=== PATIENT | female | born 1970 | race Caucasian/White ===

== ENCOUNTER 2016-04-01 19:24 | Inpatient (IN) ==
[2016-04-01] MEDS ORDERED: Ondansetron 4 MG/2 ML VIAL IVP ONE (19:45)
[2016-04-01] MEDS ORDERED: 0.9 % Sodium Chloride 1,000 ML IVC ONE ×3 (19:45→22:57)
[2016-04-01 19:54] LABS: Bilirubin,Urine Small (Negative); Blood,Urine Negative (Negative); Clarity,Urine Clear (Clear); Color,Urine Yellow (Yellow); Glucose,Urine (UA) >=1000 mg/dL (Normal); Ketones,Urine 80 mg/dL (Negative); Leukocyte Esterase,Urine Small (Negative); Nitrite,Urine Negative (Negative); PH,Urine 5.5 pH Units (5.0-8.0); Protein,Urine Negative (Neg-Trace); Specific Gravity,Urine 1.025 (1.010-1.025); Urobilinogen,Urine Normal (Normal)
[2016-04-01 19:56] LABS: Bacteria,Urine None Seen per hpf (None-Few); Hyaline Casts,Urine None Seen per lpf (None-Few); RBC,Urine 0-3 per hpf (0-3); Squamous Epithelial Cell,Urine Many per lpf (None-Few); WBC,Urine 30-50 per hpf (0-3)
[2016-04-01 20:13] LABS: Basophils # 0.1 K/mcL (0.0-0.2); Basophils % 0.8 %; Eosinophils % 0.2 %; Hematocrit 41.2 % (35.3-44.9); Hemoglobin 14.7 g/dL (11.5-15.4); Immature Granulocytes % 1.9 % (0-4); Lymphocytes # 2.5 K/mcL (0.6-4.6); Lymphocytes % 16.3 %; Mean Corpuscular HGB Conc 35.7 g/dL (31.6-35.5); Mean Corpuscular Hemoglobin 29.6 pg (28.0-33.3); Mean Corpuscular Volume 83.1 fL (83.0-100.0); Mean Platelet Volume 9.5 fL (9.4-12.4); Monocytes # 0.7 K/mcL (0.0-1.3); Monocytes % 4.6 %; Neutrophils # 11.6 K/mcL (1.6-8.9); Platelet Count 417 K/mcL (140-400); Red Blood Count 4.96 M/mcL (3.82-4.97); Red Cell Distribution Width 11.5 % (11.5-14.5); Segmented Neutrophils % 76.2 %
[2016-04-01 20:27] LABS: Albumin 3.4 g/dL (3.5-5.0); Albumin/Globulin Ratio 0.7 (1.1-2.2); Bilirubin,Total 0.5 mg/dL (0.2-1.2); Calcium 11.8 mg/dL (8.6-10.8); Potassium 4.6 mEq/L (3.5-4.5); Total Protein 8.4 g/dL (6.0-8.3)
[2016-04-01] MEDS ORDERED: *HR* Dextrose 50 % in Water (Syg) 50 ML SYRINGE IVP PRN (21:10)
[2016-04-01] MEDS ORDERED: Insulin Human Regular 10 UNIT in 0.9 % Sodium Chloride 10 ML IV ONE ×2 (21:11→22:15)
[2016-04-01] MEDS ORDERED: Insulin Human Regular 100 UNIT in 0.9 % Sodium Chloride 100 ML IVC SCH (21:15)
[2016-04-01] MEDS ORDERED: Ketorolac 15 MG/ML VIAL IVP ONE (23:43)
--- NOTE | 2016-04-01 23:49 | Emergency Department Note ---
Disposition Clinical Impression: DKA (diabetic ketoacidoses) Qualifiers: Diabetes mellitus type: type 2 Diabetes mellitus complication detail: without coma Qualified Code(s): E13.10 - Other specified diabetes mellitus with ketoacidosis without coma UTI (urinary tract infection) Qualifiers: Urinary tract infection type: acute cystitis Hematuria presence: without hematuria Qualified Code(s): N30.00 - Acute cystitis without hematuria Disposition: Admitted As Inpatient Condition: Good Time of Disposition: 22:56 General Adult HPI - General Chief complaint: ED Nausea/Vomiting/Diarrhea Stated complaint: "horrible sick for last 3 days" Source: patient Mode of arrival: ambulatory Limitations: no limitations Nursing Notes Reviewed: Yes Vital Signs Reviewed: Yes - History of Present Illness HPI Narrative: 46-year-old female presents with concerns of abdominal pain, nausea, vomiting, and weakness. Patient states that she stopped taking her insulin 4 days ago due to an upset stomach. Patient states that since that time she has become progressively more symptomatic. Patient denies being in DKA in the past. She states that she takes both metformin and injected insulin. Patient has not checked her glucose within the past 5 days but states her normal glucose is in the low 300 range. Pain Scale: 0 - Related Data Home Medications Medication Instructions Recorded Confirmed Insulin ASPART [Novolog] 10/06/15 Insulin DETEMIR [Levemir] 0 unit 10/06/15 Metformin 10/06/15 Metformin HCl [Metformin HCl ER] 500 mg PO 10/06/15 Repaglinide [Prandin] 10/06/15 Previous Rx's Medication Instructions Recorded Naproxen [Naprosyn] 500 mg PO BID 5 Days 11/13/15 Allergies Allergy/AdvReac Type Severity Reaction Status Date / Time Hydromorphone [From Dilaudid] AdvReac See Unverified 04/01/16 23:22 Comments Penicillins [PCN] AdvReac See Unverified 04/01/16 23:22 Comments sulfamethoxazole AdvReac See Unverified 04/01/16 23:22 [From Bactrim] Comments trimethoprim [From Bactrim] AdvReac See Unverified 04/01/16 23:22 Comments bee stings Allergy Swelling Uncoded 04/01/16 23:22 of Lip/Tongue/Throat All systems ED: reviewed and negative except as stated. Constitutional: Reports: weakness. Denies: fever, chills Cardiovascular: Denies: chest pain, palpitations, dyspnea on exertion, orthopnea , syncope, paroxysmal nocturnal dyspnea Respiratory: Denies: cough, dyspnea, wheezes, hemoptysis, sputum production Gastrointestinal: Reports: abdominal pain, nausea, vomiting. Denies: diarrhea, constipation, hematemesis, melena Genitourinary: Denies: urgency, dysuria Musculoskeletal: Denies: back pain, neck pain Integumentary: Denies: rash Neurological: Denies: headache Past Medical History - Past Medical History Attestation: Yes The following information was validated with the patient. Source: patient Medical history: Reports: diabetes, other Psychiatric history: Reports: no psych history RESOURCE SPECIALIST history: Reports: no RESOURCE SPECIALIST history - Social History Smoking Status: Never smoker Smokeless Tobacco Status: No Alcohol use: Reports: none Drug use: Reports: none Physical Exam General: Alert and in no acute distress Skin: Warm, dry, intact Head: Normocephalic and atraumatic Neck: Supple, trachea midline and no tenderness Cardiovascular: Tachycardia, no murmur, normal perfusion Respiratory: CTAB, no wheezing, cough, or respiratory distress Musculoskeletal: Normal strength, no tenderness, swelling or deformity GI: Soft, generalized tenderness without evidence of rigidity, guarding, or rebound. nondistended. Bowel sounds present Neuro: A&O to person, place, time and situation. No focal deficits noted on exam Psychiatric: cooperative and appropriate mood and affect. - General Limitations: no limitations General appearance: alert Course Vital Signs Temperature 97.3 F L 04/01/16 19:28 Pulse Rate 112 04/01/16 19:28 Respiratory Rate 20 04/01/16 19:28 Blood Pressure 101/70 04/01/16 19:28 O2 Sat by Pulse Oximetry 99 04/01/16 19:28 Temperature 98.3 F 04/02/16 03:26 Pulse Rate 92 04/02/16 07:00 Respiratory Rate 12 04/02/16 07:00 Blood Pressure 129/79 04/02/16 07:00 O2 Sat by Pulse Oximetry 99 04/02/16 07:00 Oxygen Delivery Oxygen Delivery Room Air Medical Decision Making - MDM Narrative Medical decision making narrative: Patient started on insulin with IV bolus and then IV drip in the emergency department. Patient was given multiple boluses of IV fluids in the emergency department for treatment of DKA. Patient comfortable with plan for admission to the hospital for continuation of care. Patient was given ceftriaxone emergency department for treatment of urinary tract infection. Patient states that she is taking Keflex and ceftriaxone in the past without difficulty. - Medical Records Medical records reviewed: Yes I reviewed the patient's medical records. - Lab Data Lab results reviewed: Yes I reviewed the patient's lab results. Result diagrams: 04/02/16 02:57 04/02/16 02:57 Lab Results 04/01/16 04/01/16 04/01/16 Range/Units 19:45 19:48 20:00 WBC 15.3 H (4.3-11.1) K/mcL RBC 4.96 (3.82-4.97) M/mcL Hgb 14.7 (11.5-15.4) g/dL Hct 41.2 (35.3-44.9) % MCV 83.1 (83.0-100.0) fL MCH 29.6 (28.0-33.3) pg MCHC 35.7 H (31.6-35.5) g/dL RDW 11.5 (11.5-14.5) % Plt Count 417 H (140-400) K/mcL MPV 9.5 (9.4-12.4) fL Immature Gran % 1.9 (0-4) % Seg Neutrophils % 76.2 % Lymphocytes % 16.3 % Monocytes % 4.6 % Eosinophils % 0.2 % Basophils % 0.8 % Neutrophils # 11.6 H (1.6-8.9) K/mcL Lymphocytes # 2.5 (0.6-4.6) K/mcL Monocytes # 0.7 (0.0-1.3) K/mcL Eosinophils # 0.0 (0.0-0.6) K/mcL Basophils # 0.1 (0.0-0.2) K/mcL Sodium (136-145) mEq/L Potassium (3.5-4.5) mEq/L Chloride (98-109) mEq/L Carbon Dioxide (19-29) mEq/L BUN (7-20) mg/dL Creatinine (0.57-1.11) mg/dL Est GFR ( Amer) (> 60) Est GFR (Non-Af Amer) (> 60) BUN/Creatinine Ratio (6-26) Glucose (70-99) mg/dL POC Glucose (58-89) Calculated Osmolality (280-300) Calcium (8.6-10.8) mg/dL Total Bilirubin (0.2-1.2) mg/dL AST (5-34) Units/L ALT (0-55) Units/L Alkaline Phosphatase (38-126) Units/L Serum Total Protein (6.0-8.3) g/dL Albumin (3.5-5.0) g/dL Globulin (2.4-3.5) g/dL Albumin/Globulin Ratio (1.1-2.2) Lipase (8-78) Units/L Urine Color Yellow (Yellow) Urine Clarity Clear (Clear) Urine pH 5.5 (5.0-8.0) pH Units Ur Specific [place] 1.025 (1.010-1.025) Urine Protein Negative (Neg-Trace) mg/dL Urine Glucose (UA) >=1000 H (Normal) mg/dL Urine Ketones 80 H (Negative) mg/dL Urine Blood Negative (Negative) Urine Nitrite Negative (Negative) Urine Bilirubin Small H (Negative) Urine Urobilinogen Normal (Normal) mg/dL Ur Leukocyte Esterase Small H (Negative) Urine Microscopic RBC 0-3 (0-3) per hpf Urine Microscopic WBC 30-50 H (0-3) per hpf Ur Squamous Epith Cells Many H (None-Few) per lpf Urine Bacteria None Seen (None-Few) per hpf Hyaline Casts None Seen (None-Few) per lpf Urine Yeast Test Not Performed Ur Culture Indicated? YES A (NO) Urine Test Negative (Negative) 04/01/16 04/01/16 04/01/16 Range/Units 20:00 21:29 22:48 WBC (4.3-11.1) K/mcL RBC (3.82-4.97) M/mcL Hgb (11.5-15.4) g/dL Hct (35.3-44.9) % MCV (83.0-100.0) fL MCH (28.0-33.3) pg MCHC (31.6-35.5) g/dL RDW (11.5-14.5) % Plt Count (140-400) K/mcL MPV (9.4-12.4) fL Immature Gran % (0-4) % Seg Neutrophils % % Lymphocytes % % Monocytes % % Eosinophils % % Basophils % % Neutrophils # (1.6-8.9) K/mcL Lymphocytes # (0.6-4.6) K/mcL Monocytes # (0.0-1.3) K/mcL Eosinophils # (0.0-0.6) K/mcL Basophils # (0.0-0.2) K/mcL Sodium 133 L (136-145) mEq/L Potassium 4.6 H (3.5-4.5) mEq/L Chloride 88 L (98-109) mEq/L Carbon Dioxide 14 L (19-29) mEq/L BUN 27 H (7-20) mg/dL Creatinine 1.66 H (0.57-1.11) mg/dL Est GFR ( Amer) 40 L (> 60) Est GFR (Non-Af Amer) 33 L (> 60) BUN/Creatinine Ratio 16 (6-26) Glucose 622 H* (70-99) mg/dL POC Glucose 485 H* 466 H* (58-89) Calculated Osmolality 310 H (280-300) Calcium 11.8 H (8.6-10.8) mg/dL Total Bilirubin 0.5 (0.2-1.2) mg/dL AST 10 (5-34) Units/L ALT 12 (0-55) Units/L Alkaline Phosphatase 140 H (38-126) Units/L Serum Total Protein 8.4 H (6.0-8.3) g/dL Albumin 3.4 L (3.5-5.0) g/dL Globulin 5.0 H (2.4-3.5) g/dL Albumin/Globulin Ratio 0.7 L (1.1-2.2) Lipase 27 (8-78) Units/L Urine Color (Yellow) Urine Clarity (Clear) Urine pH (5.0-8.0) pH Units Ur Specific [place] (1.010-1.025) Urine Protein (Neg-Trace) mg/dL Urine Glucose (UA) (Normal) mg/dL Urine Ketones (Negative) mg/dL Urine Blood (Negative) Urine Nitrite (Negative) Urine Bilirubin (Negative) Urine Urobilinogen (Normal) mg/dL Ur Leukocyte Esterase (Negative) Urine Microscopic RBC (0-3) per hpf Urine Microscopic WBC (0-3) per hpf Ur Squamous Epith Cells (None-Few) per lpf Urine Bacteria (None-Few) per hpf Hyaline Casts (None-Few) per lpf Urine Yeast Ur Culture Indicated? (NO) Urine Test (Negative) 04/01/16 Range/Units 22:52 WBC (4.3-11.1) K/mcL RBC (3.82-4.97) M/mcL Hgb (11.5-15.4) g/dL Hct (35.3-44.9) % MCV (83.0-100.0) fL MCH (28.0-33.3) pg MCHC (31.6-35.5) g/dL RDW (11.5-14.5) % Plt Count (140-400) K/mcL MPV (9.4-12.4) fL Immature Gran % (0-4) % Seg Neutrophils % % Lymphocytes % % Monocytes % % Eosinophils % % Basophils % % Neutrophils # (1.6-8.9) K/mcL Lymphocytes # (0.6-4.6) K/mcL Monocytes # (0.0-1.3) K/mcL Eosinophils # (0.0-0.6) K/mcL Basophils # (0.0-0.2) K/mcL Sodium (136-145) mEq/L Potassium (3.5-4.5) mEq/L Chloride (98-109) mEq/L Carbon Dioxide (19-29) mEq/L BUN (7-20) mg/dL Creatinine (0.57-1.11) mg/dL Est GFR ( Amer) (> 60) Est GFR (Non-Af Amer) (> 60) BUN/Creatinine Ratio (6-26) Glucose (70-99) mg/dL POC Glucose 466 H* (58-89) Calculated Osmolality (280-300) Calcium (8.6-10.8) mg/dL Total Bilirubin (0.2-1.2) mg/dL AST (5-34) Units/L ALT (0-55) Units/L Alkaline Phosphatase (38-126) Units/L Serum Total Protein (6.0-8.3) g/dL Albumin (3.5-5.0) g/dL Globulin (2.4-3.5) g/dL Albumin/Globulin Ratio (1.1-2.2) Lipase (8-78) Units/L Urine Color (Yellow) Urine Clarity (Clear) Urine pH (5.0-8.0) pH Units Ur Specific [place] (1.010-1.025) Urine Protein (Neg-Trace) mg/dL Urine Glucose (UA) (Normal) mg/dL Urine Ketones (Negative) mg/dL Urine Blood (Negative) Urine Nitrite (Negative) Urine Bilirubin (Negative) Urine Urobilinogen (Normal) mg/dL Ur Leukocyte Esterase (Negative) Urine Microscopic RBC (0-3) per hpf Urine Microscopic WBC (0-3) per hpf Ur Squamous Epith Cells (None-Few) per lpf Urine Bacteria (None-Few) per hpf Hyaline Casts (None-Few) per lpf Urine Yeast Ur Culture Indicated? (NO) Urine Test (Negative) - Radiology Data Radiology results reviewed: Yes I reviewed the patient's radiology results. - EKG Data EKG #1 EKG attestation: Yes I reviewed and interpreted this EKG. EKG results narrative: ECG - interpreted by ED physician. Rate 104 sinus tachycardia, no STEMI
[2016-04-02] MEDS ORDERED: Naloxone 0.4 MG/ML INJ IVP PRN (00:41)
[2016-04-02] MEDS ORDERED: Insulin LISPRO 300 UNITS/3 ML VIAL SQ PRN (00:43)
[2016-04-02] MEDS ORDERED: D5% in 0.45% NACL w KCl 20 MEQ/1,000 ML MLS IVC PRN (00:43)
[2016-04-02] MEDS ORDERED: Insulin LISPRO 300 UNITS/3 ML VIAL SQ ONE (00:43)
[2016-04-02] MEDS ORDERED: D5% in 0.45% NACL 1,000 ML IVC PRN (00:43)
[2016-04-02] MEDS ORDERED: *HR* Dextrose 50 % in Water (Syg) 50 ML SYRINGE IVP PRN ×2 (00:43→14:15)
[2016-04-02] MEDS ORDERED: 0.9 % Sodium Chloride 1,000 ML IV SCH (00:45)
[2016-04-02] MEDS: Insulin Human Regular 100 UNIT in 0.9 % Sodium Chloride 100 ML IVC SCH ×2 (00:56→01:25)
--- NOTE | 2016-04-02 00:59 | Internal Med History&Physical ---
Date of Encounter: 04/02/16 Time of Encounter: 00:00 Assessment and Plan (1) DKA (diabetic ketoacidoses) Current visit: Yes Status: Acute -Likely secondary non compliance/viral gastroenteritis/UTI -Continue Insulin drip as per DKA protocol -IV fluids -continue to monitor fingerstick glucose as per DKA protocol -f/u repeat BMP -f/u HbA1C in am -patient demonstrates understanding of her disease and it's management and states this was the first time such an episode has occurred -Reports of loosing significant amount of weight once she was diagnosed with DM (used to weigh 220lbs) Critical Care time spent with the patient was 30minutes Qualifiers: Diabetes mellitus type: type 2 Diabetes mellitus complication detail: without coma Qualified Code(s): E13.10 - Other specified diabetes mellitus with ketoacidosis without coma (2) Diabetes mellitus type 2 in nonobese Current visit: Yes Status: Chronic -Will restart home insulin regimen once DKA resolves -f/u HbA1C -continue to monitor fingerstick and blood glucose -Diabetic education provided (3) Viral gastroenteritis Current visit: Yes Status: Acute -continue supportive care -IV fluids -Zofran PRN -Protonix 40mg IV (4) UTI (urinary tract infection) Current visit: Yes Status: Acute -Continue IV abx -follow up urine cultures Qualifiers: Urinary tract infection type: acute cystitis Hematuria presence: without hematuria Qualified Code(s): N30.00 - Acute cystitis without hematuria (5) Sinus tachycardia Current visit: Yes Status: Acute -Reports of chronic history of tachycardia -Will obtain 2D echo -Clinically asymptomatic at this time -Will continue to monitor (6) FITO (acute kidney injury) Current visit: Yes Status: Acute Continue IV fluids avoid nephrotoxic agents continue to monitor (7) DVT prophylaxis Current visit: Yes Status: Acute Heparin SQ Internal Medicine - H&P: HPI Chief complaint: nausea, vomiting Admitted From: Home Plans for Post Hospital Care: Home History of present illness: Ms. Rodriguez is a 46 year old female with PMH of DM-type 2 who presents to the ER for evaluation of nausea, vomiting x 4 days duration. Patient states about four days ago she started having epigastric discomfort which worsened to severe nausea and vomiting the following day. She states she has been barely able to keep anything down and has missed several insulin dosing at home due to severe weakness. She states she has had increased urinary frequency but that's common for her. She also reports of having fast heart rate at rest. Upon arrival to the ER, patient was noted to be severely hyperglycemic with an elevated anion gap consistent with DKA. She was started on IV fluids, Insulin drip and admitted to the ICU. At this time she is resting in bed, reports of complete resolution of her nausea and vomiting, but reports of epigastric burning. Reports of history of a "stomach ulcer" years ago for which she used to take sucrafate at one point, however apart from her insulin, she does not take any other medications. States she was recently started on Lisinopril by her PCP. She denies any headache, chest pain, sob, n/v, fever, or chills at this time. Past Med Surg Social Fam HX - Past Medical History Medical history: diabetes, other Psychiatric history: no psych history - Past Surgical History Surgical History: cholecystectomy - Social History Smoking Status: Never smoker Smokeless Tobacco Status: No Alcohol use: none Drug use: none Internal Medicine - H&P: Meds Insulin ASPART [Novolog] 10/06/15 [History] Insulin DETEMIR [Levemir] 0 unit 10/06/15 [History] Metformin 10/06/15 [History] Metformin HCl [Metformin HCl ER] 500 mg PO 10/06/15 [History] Repaglinide [Prandin] 10/06/15 [History] Naproxen [Naprosyn] 500 mg PO BID 5 Days 11/13/15 [Rx] Allergies Hydromorphone [From Dilaudid] Adverse Reaction (Unverified 04/01/16 23:22) See Comments Penicillins [PCN] Adverse Reaction (Unverified 04/01/16 23:22) See Comments sulfamethoxazole [From Bactrim] Adverse Reaction (Unverified 04/01/16 23:22) See Comments trimethoprim [From Bactrim] Adverse Reaction (Unverified 04/01/16 23:22) See Comments bee stings Allergy (Uncoded 04/01/16 23:22) Swelling of Lip/Tongue/Throat All Systems PM: A 10-system review of systems was performed and is negative for pertinent findings except as documented above in the HPI. - Constitutional Constitutional: as per HPI - Constitutional Vitals: Temp Pulse Resp BP Pulse Ox 0 F L 107 16 137/87 100 04/02/16 00:07 04/01/16 22:50 04/02/16 00:07 04/02/16 00:07 04/01/16 22:50 General appearance: Present: cooperative, A&O X 3, pleasant, no acute distress, answers questions appropriately - Head Head exam: Present: atraumatic, normocephalic - Eye Eye exam: Present: PERRL, conjuntiva pink, sclera anicteric - Respiratory Respiratory exam: Present: CTAB. Absent: accessory muscle use, rales, rhonchi, wheezes - Cardiovascular Cardiovascular exam: Present: +S1, +S2, tachycardia. Absent: diastolic murmur, gallop, rubs, systolic murmur - GI/Abdominal GI/Abdominal exam: Present: normal bowel sounds, soft, no peritoneal signs. Absent: distended, rebound, tenderness - Extremities Exam Extremities exam: Present: warm, radial pulses palpable and symetrical. Absent : calf tenderness, cyanotic, pedal edema - Neurological Exam Neurological exam: Present: alert, oriented X3, no focal deficits - Psychiatric Psychiatric exam: Present: normal affect, normal mood Internal Med - H&P Results - Labs CBC & Chem 7: 04/01/16 20:00 04/01/16 20:00
[2016-04-02 01:08] LABS: Calcium 9.7 mg/dL (8.6-10.8); Potassium 3.8 mEq/L (3.5-4.5)
[2016-04-02] MEDS: Pantoprazole 40 MG VIAL IVP SCH ×2 (01:24→07:23)
[2016-04-02] MEDS: 0.45 % Sodium Chloride w/KCl 20 MEQ/1,000 ML MLS IVC SCH ×9 (01:26→13:03)
[2016-04-02 03:23] LABS: Basophils # 0.1 K/mcL (0.0-0.2); Basophils % 0.5 %; Eosinophils % 0.1 %; Hematocrit 33.2 % (35.3-44.9); Immature Granulocytes % 1.3 % (0-4); Immature Platelets 2.2 % (1.1-6.1); Lymphocytes # 3.2 K/mcL (0.6-4.6); Mean Corpuscular HGB Conc 35.5 g/dL (31.6-35.5); Mean Corpuscular Hemoglobin 29.4 pg (28.0-33.3); Mean Corpuscular Volume 82.8 fL (83.0-100.0); Mean Platelet Volume 9.4 fL (9.4-12.4); Monocytes # 1.1 K/mcL (0.0-1.3); Monocytes % 6.6 %; Neutrophils # 11.5 K/mcL (1.6-8.9); Platelet Count 375 K/mcL (140-400); Red Blood Count 4.01 M/mcL (3.82-4.97); Red Cell Distribution Width 11.2 % (11.5-14.5); Segmented Neutrophils % 71.5 %
[2016-04-02 03:24] LABS: Hemoglobin 11.8 g/dL (11.5-15.4)
[2016-04-02 03:35] LABS: Estimated Average Glucose > 355 mg/dl; Hemoglobin A1C >= 14.1 %
[2016-04-02 03:39] LABS: BUN/Creatinine Ratio 23 (6-26); Blood Urea Nitrogen 23 mg/dL (7-20); Calcium 9.4 mg/dL (8.6-10.8); Carbon Dioxide 19 mEq/L (19-29); Chloride 104 mEq/L (98-109); Cholesterol 156 mg/dL (< 200); Glucose 222 mg/dL (70-99); HDL Cholesterol 39 mg/dL (40-59); LDL Cholesterol,Calculated 100 mg/dL (0-99); Magnesium 1.4 mg/dL (1.6-2.6); Osmolality,Calculated 293 (280-300); Phosphorous 2.2 mg/dL (2.3-4.7); Potassium 4.3 mEq/L (3.5-4.5); Sodium 136 mEq/L (136-145); Triglycerides 86 mg/dL (< 150); eGFR For African Americans > 60 (> 60); eGFR For Non-African Americans 59 (> 60)
[2016-04-02] MEDS ORDERED: Magnesium Sulfate 2 GM in D5% in Water 100 ML IVPB ONE (05:28)
[2016-04-02] MEDS: *HR* Heparin 5,000 UNIT/ML VIAL SQ SCH ×3 (07:23→23:23)
[2016-04-02] MEDS ORDERED: D5% in 0.45% NACL w KCl 20 MEQ/1,000 ML MLS IVC SCH (09:30)
[2016-04-02 10:02] LABS: Alanine Aminotransferase 10 Units/L (0-55); Albumin/Globulin Ratio 0.7 (1.1-2.2); Alkaline Phosphatase 96 Units/L (38-126); Aspartate Amino Transferase 17 Units/L (5-34); BUN/Creatinine Ratio 22 (6-26); Bilirubin,Total 0.3 mg/dL (0.2-1.2); Blood Urea Nitrogen 19 mg/dL (7-20); Calcium 9.7 mg/dL (8.6-10.8); Carbon Dioxide 17 mEq/L (19-29); Chloride 108 mEq/L (98-109); Globulin 3.9 g/dL (2.4-3.5); Glucose 59 mg/dL (70-99); Osmolality,Calculated 280 (280-300); Sodium 135 mEq/L (136-145); eGFR For African Americans > 60 (> 60); eGFR For Non-African Americans > 60 (> 60)
[2016-04-02 10:04] LABS: Albumin 2.6 g/dL (3.5-5.0); Potassium 4.7 mEq/L (3.5-4.5); Total Protein 6.5 g/dL (6.0-8.3)
[2016-04-02] MEDS: Ondansetron 4 MG/2 ML VIAL IVP PRN ×2 (13:05→19:48)
--- NOTE | 2016-04-02 13:24 | Electrocardiograph Report ---
[facility] Test Date: 2016-04-01 Pat Name: Shruthi Rodriguez Department: 102 Room: [facility] Gender: F Special Education Professional: Alexey : 1970 Requested By: Sindy Wang Order Number: [id number] Reading MD: Radha Danielle Measurements Intervals [place] Rate: 104 P: 75 PA: 118 QRS: 61 QRSD: 98 T: 54 QT: 325 QTc: 385 Interpretive Statements SINUS TACHYCARDIA WITH SHORT PA INTERVAL NONSPECIFIC T-WAVE ABNORMALITY ABNORMAL RHYTHM ECG Electronically Signed On 04-02-16 13:23:40 EST by Radha Danielle
[2016-04-02 13:34] LABS: BUN/Creatinine Ratio 20 (6-26); Blood Urea Nitrogen 16 mg/dL (7-20); Calcium 9.4 mg/dL (8.6-10.8); Carbon Dioxide 14 mEq/L (19-29); Chloride 107 mEq/L (98-109); Glucose 189 mg/dL (70-99); Osmolality,Calculated 282 (280-300); Sodium 133 mEq/L (136-145); eGFR For African Americans > 60 (> 60); eGFR For Non-African Americans > 60 (> 60)
[2016-04-02] MEDS ORDERED: D5% in Water 1,000 ML IV PRN (14:15)
[2016-04-02] MEDS ORDERED: Dextrose Gel 15 GM PO PRN ×2 (14:15)
[2016-04-02] MEDS ORDERED: Insulin DETEMIR 100 UNIT/ML X5UNITS SQ ONE (14:21)
--- NOTE | 2016-04-02 14:43 | ECHO - Doppler Report ---
Echocardiogram Name: Shruthi Rodriguez Date of Study: 04/02/2016 Date: 1970 Ht: 62.0 in Medical Record#: [id number] Age: 46 Wt: 118.0 lb Gender: Female BSA: 1.53 Order #: [id number] Location: [facility] Room #: IC5 Reading Physician: Fina Padron DO Flight Paramedic: Елена Bach Ordering Physician: Jorgito Humphrey MD Primary Physician: Adelina Melendez CNP Indications: r/o wall motion abnormalities Impressions: LVEF 60-65%. Normal LV wall motion. Normal left ventricular size and systolic function. There is evidence of moderate diastolic dysfunction of the left ventricle. Normal right ventricular size and function. Mild tricuspid regurgitation. No pulmonary hypertension. Trivial pericardial effusion. No tamponade. Left Ventricular Wall Motion: Rest Echo Findings All wall segments showed normal motion. Findings: Study Quality * Technically adequate exam. ECG Findings * Normal sinus rhythm. Left Ventricle * LVEF 60-65%. * Normal LV chamber size, wall thickness and function. * Moderate left ventricular diastolic dysfunction. Left Atrium * Normal left atrial size. Mitral Valve * Normal mitral valve structure. * No mitral stenosis. * No mitral regurgitation. Aortic Valve * No aortic regurgitation. * Aortic valve not well visualized. * No aortic stenosis. Tricuspid Valve * Normal tricuspid valve structure. * Estimated RA pressure is 3 mmHg. * Estimated RVSP is 30 mmHg. * No pulmonary hypertension. * Mild tricuspid regurgitation. Pulmonic Valve * Pulmonic valve is not well visualized. * No pulmonic stenosis. * No pulmonic regurgitation. Pulmonary Artery * Pulmonary artery not well visualized. Right Ventricle * Normal right ventricular structure and function. * Prominent moderator band. Right Atrium * Normal right atrial size. Interatrial Septum * Interatrial septum not well evaluated. IVC * Normal IVC dimensions and inspiratory collapse. Aorta * Normally sized aortic root. Pericardium * There is a trivial pericardial effusion present. History Hypercholesteremia Family History of CAD Measurements: BP: 133/ 74 2D Normal Values IVSd: 1.00 cm 0.6 - 1.0 cm LVIDd: 4.00 cm 3.7 - 5.6 cm LVPWd: 1.00 cm 0.6 - 1.1 cm LVIDs: 2.80 cm 1.5 - 3.6 cm LA: 3.60 cm 2.0 - 4.0cm %FS: 30.00 cm >25 % LA volume: 37 Mitral Valve Peak E:.81 m/sec Peak A:.66 m/sec E/A Ratio:1.2 Peak E' Lat Herson:10.4 cm/s Peak E' Med Herson:5.85 cm/s E/E' Lat Ratio:7.8 E/E' Med Ratio:13.8 Tricuspid Valve TV Regurg Peak Grad: 27.00mmHg Updated by Fina Padron on 04/02/2016 2:34:45 PM electronically signed on 04/02/2016 2:37:25 PM with status of Final Wall Motion Kang: 1=Normal, 2=Hypokinesis, 3=Akinesis, 4=Dyskinesis, 5=Aneurysmal, 6=Hyperkinetic, X=Not Visualized (Blank)=Missing
[2016-04-02] MEDS: Insulin LISPRO 300 UNITS/3 ML VIAL SQ SCH (16:15)
[2016-04-02] MEDS ORDERED: Insulin DETEMIR 100 UNIT/ML X5UNITS SQ SCH (21:00)
[2016-04-02] MEDS ORDERED: Insulin LISPRO 300 UNITS/3 ML VIAL SQ SCH (21:00)
--- NOTE | 2016-04-02 21:40 | Internal Med Progress Note ---
Date of Encounter: 04/02/16 Time of Encounter: 09:00 - Assessment and plan (1) DKA (diabetic ketoacidoses) Current Visit: Yes Status: Acute Assessment and plan: Pt is treated per DKA protocol. Continue IV insulin - transition to subcutaneous insulin, when the anion gap closes Qualifiers: Diabetes mellitus type: type 2 Diabetes mellitus complication detail: without coma Qualified Code(s): E13.10 - Other specified diabetes mellitus with ketoacidosis without coma (2) DVT prophylaxis Current Visit: Yes Status: Acute Assessment and plan: Continue heparin (3) UTI (urinary tract infection) Current Visit: Yes Status: Acute Assessment and plan: Suspected UTI. UA shows epithelial cells. Await cultures. Qualifiers: Urinary tract infection type: acute cystitis Hematuria presence: without hematuria Qualified Code(s): N30.00 - Acute cystitis without hematuria (4) Epigastric abdominal pain Current Visit: Yes Status: Acute Assessment and plan: Serum lipase is normal. Treat for peptic ulcer disease with PPI - Subjective Interval history: Pt seen and examined at the bedside. Pt reports feeling better. Reports some epigastric pain. No nausea or vomiting now - Constitutional Vitals: Temp Pulse Resp BP Pulse Ox 98.2 F 92 14 114/76 99 04/02/16 19:50 04/02/16 21:00 04/02/16 21:00 04/02/16 21:00 04/02/16 21:00 Exam: General: Not in acute distress at the time of my evaluation Lungs: Clear to auscultation Cardiac: Regular rate and rhythm. No significant murmurs Abdomen: mild Epigastric tenderness Neurological: Alert and oriented. No gross localizing deficits Psych: Not agrressive or agitated Extremities: no significant leg edema Skin: No generalized rash Internal Medicine: Result - Labs CBC & Chem 7: 04/02/16 02:57 04/02/16 13:04 Labs: Short CBC 04/02/16 Range/Units 02:57 WBC 16.1 H (4.3-11.1) K/mcL Hgb 11.8 D (11.5-15.4) g/dL Hct 33.2 L (35.3-44.9) % Plt Count 375 (140-400) K/mcL Neutrophils # 11.5 H (1.6-8.9) K/mcL BMP 04/02/16 04/02/1604/02/17 00:48 02:57 09:39 Sodium 136 136 135 L Potassium 3.8 4.3 4.7 H Chloride 102 104 108 Carbon Dioxide 18 L 19 17 L BUN 25 H 23 H 19 Creatinine 1.24 H 1.01 0.85 Glucose 319 H 222 H 59 L Calcium 9.7 D 9.4 9.7 04/02/16 13:04 Sodium 133 L Potassium 5.0 H Chloride 107 Carbon Dioxide 14 L BUN 16 Creatinine 0.80 Glucose 189 H Calcium 9.4 Liver Function 04/02/16 Range/Units 09:39 Total Bilirubin 0.3 (0.2-1.2) mg/dL AST 17 (5-34) Units/L ALT 10 (0-55) Units/L Alkaline Phosphatase 96 (38-126) Units/L Albumin 2.6 L D (3.5-5.0) g/dL Consult Discharge Plan - Plan Referrals: Adelina Melendez, [employer] [Primary Care Provider] -
[2016-04-02 22:14] LABS: BUN/Creatinine Ratio 14 (6-26); Blood Urea Nitrogen 11 mg/dL (7-20); Calcium 9.6 mg/dL (8.6-10.8); Carbon Dioxide 23 mEq/L (19-29); Chloride 103 mEq/L (98-109); Glucose 164 mg/dL (70-99); Osmolality,Calculated 277 (280-300); Phosphorous 1.6 mg/dL (2.3-4.7); Potassium 4.4 mEq/L (3.5-4.5); Sodium 132 mEq/L (136-145); eGFR For African Americans > 60 (> 60); eGFR For Non-African Americans > 60 (> 60)
[2016-04-02] MEDS ORDERED: SODIUM PHOSPHATE IVPB ONE (22:24)
[2016-04-02] MEDS ORDERED: WATER IVPB ONE (22:24)
[2016-04-02] MEDS ORDERED: D5 IVPB ONE (22:24)
[2016-04-03 03:07] LABS: Hematocrit 33.9 % (35.3-44.9); Hemoglobin 12.1 g/dL (11.5-15.4); Mean Corpuscular HGB Conc 35.7 g/dL (31.6-35.5); Mean Corpuscular Hemoglobin 29.9 pg (28.0-33.3); Mean Corpuscular Volume 83.7 fL (83.0-100.0); Mean Platelet Volume 9.1 fL (9.4-12.4); Platelet Count 327 K/mcL (140-400); Red Blood Count 4.05 M/mcL (3.82-4.97); Red Cell Distribution Width 11.5 % (11.5-14.5)
[2016-04-03] MEDS: Ondansetron 4 MG/2 ML VIAL IVP PRN (03:10)
[2016-04-03 03:23] LABS: BUN/Creatinine Ratio 14 (6-26); Blood Urea Nitrogen 9 mg/dL (7-20); Calcium 9.5 mg/dL (8.6-10.8); Carbon Dioxide 22 mEq/L (19-29); Chloride 107 mEq/L (98-109); Glucose 68 mg/dL (70-99); Magnesium 1.7 mg/dL (1.6-2.6); Osmolality,Calculated 279 (280-300); Potassium 3.8 mEq/L (3.5-4.5); Sodium 136 mEq/L (136-145); eGFR For African Americans > 60 (> 60); eGFR For Non-African Americans > 60 (> 60)
[2016-04-03 03:25] LABS: Phosphorous 2.8 mg/dL (2.3-4.7)
[2016-04-03] MEDS: Insulin LISPRO 300 UNITS/3 ML VIAL SQ SCH ×2 (08:29→12:26)
[2016-04-03] MEDS: *HR* Heparin 5,000 UNIT/ML VIAL SQ SCH (08:30)
[2016-04-03] MEDS: Pantoprazole 40 MG VIAL IVP SCH (08:30)
[2016-04-03] MEDS ORDERED: Magnesium Oxide 400 MG TABLET PO SCH (09:00)
--- NOTE | 2016-04-03 10:05 | Discharge Summary ---
Date of Encounter: 04/03/16 Time of Encounter: 09:58 - Discharge Diagnosis (1) DKA (diabetic ketoacidoses) Priority: Primary Status: Acute Qualifiers: Diabetes mellitus type: type 2 Diabetes mellitus complication detail: without coma Qualified Code(s): E13.10 - Other specified diabetes mellitus with ketoacidosis without coma (2) Epigastric abdominal pain Priority: Secondary Status: Acute Comments: Likely secondary to peptic ulcer disease. Recommended PPI and follow-up with lawn specialist for possible endoscopy (3) Diabetes mellitus type 2, uncontrolled Priority: Secondary Status: Acute Comments: Hemoglobin A1c is 14.1% Qualifiers: Diabetes mellitus complication status: with hyperglycemia Diabetes mellitus buttermaker insulin use: with buttermaker use Qualified Code(s): E11.65 - Type 2 diabetes mellitus with hyperglycemia; Z79.4 - bed bug exterminator (current) use of insulin (4) Hypophosphatemia Priority: Secondary Status: Resolved (5) Hypomagnesemia Priority: Secondary Status: Resolved - Discharge Medications Prescriptions: Pantoprazole Sodium 40 mg PO DAILY #30 tab Pantoprazole Sodium 40 mg PO DAILY #30 tab Sucralfate [Carafate] 1 gm PO QIDAC PRN #30 tablet PRN Reason: Dyspepsia Sucralfate [Carafate] 1 gm PO QIDAC PRN #30 tablet PRN Reason: Dyspepsia Home Medications: Metformin HCl [Metformin HCl ER] 1,000 mg PO BID 10/06/15 [History] Aspirin 81 mg PO DAILY 04/02/16 [History] Gabapentin [Neurontin] 100 mg PO TID PRN 04/02/16 [History] Lisinopril 2.5 mg PO DAILY 04/02/16 [History] Repaglinide [Prandin] 1 mg PO TIDAC 04/02/16 [History] Insulin ASPART [Novolog] 0 - 30 units SQ QIDAC #1 vial 04/03/16 [Rx] Insulin DETEMIR [Levemir] 24 unit SQ DAILY #1 vial 04/03/16 [Rx] Pantoprazole Sodium 40 mg PO DAILY #30 tab 04/03/16 [Rx] Pantoprazole Sodium 40 mg PO DAILY #30 tab 04/03/16 [Rx] Sucralfate [Carafate] 1 gm PO QIDAC PRN #30 tablet 04/03/16 [Rx] Sucralfate [Carafate] 1 gm PO QIDAC PRN #30 tablet 04/03/16 [Rx] Allergies/Adverse Reactions: Allergies Hydromorphone [From Dilaudid] Allergy (Severe, Verified 04/03/16 08:28) Palpitations pt states throws me into a fib rvr Penicillins [PCN] Adverse Reaction (Severe, Verified 04/03/16 08:28) Hives sulfamethoxazole [From Bactrim] Adverse Reaction (Severe, Verified 04/03/16 08: 28) Rash trimethoprim [From Bactrim] Adverse Reaction (Severe, Verified 04/03/16 08:28) Rash bee stings Allergy (Severe, Uncoded 04/03/16 08:28) Swelling of Lip/Tongue/Throat Procedures/tests Complete & Pending: Procedures Performed prior 72 hours Category Date Time Status ECG 12 lead ECG [ECG] Routine Y 04/01/16 12:20 Completed EV echocardiogram Routine Y 04/02/16 00:51 Completed Pending Tests Category Date Time Status Lactic Acid ([facility] Only) Stat Lab 04/02/16 00:47 Incomplete ITS Impressions Chest X-Ray 04/01/16 20:31 IMPRESSION: No evidence of pneumoperitoneum. Clear lungs. D/ / Jason Vitale MD / Jason Vitale MD Interpreting Provider: Jason Vitale MD Date of admission: 04/01/16 23:20 Primary care physician: Adelina Melendez CNP Discharging clinician: Sindy Wang Anticipated date of discharge: 04/03/16 - Patient Status Disposition: Home, Self-Care Condition: Good Overall status at discharge: patient is back to baseline - Discharge Instructions Instructions: Urinary Tract Infection in Women (DC), Diabetes Mellitus Type 2 in Adults (DC), Gastroenteritis (DC) Follow Up With: Adelina Melendez CNP [Primary Care Provider] - Taylor uHtson MD [Partnered Physician] - Forms: ED Satisfaction Letter Additional Instructions: Follow up with PCP in 7 days; Follow up with Gatroenterologist in 2-4 weeks - Diet and Activity Activity: increase activity as tolerated Diet: diabetic diet Interval History: 46 year old female with PMH of DM-type 2 presented to the ER with h/o of nausea , vomiting x 4 days duration. she has been barely able to keep anything down and has missed several insulin dosing at home due to severe weakness. She reported increased urinary frequency. In the ER, patient was noted to be severely hyperglycemic (serum glucose: 622) with an elevated anion gap (of 31), ketonuria consistent with DKA. She was started on IV fluids, Insulin drip and admitted to the ICU. Her acidosis and anion gap improved and was transitioned to subcutaneous insulin on 04/02/16. She tolerated the diet and her blood sugars were well controlled. On the background, patient has uncontrolled diabetes with hemoglobin A1c of 14.1%. She reported epigastric pain since the admission time. Lipase was normal. Pain was suspicious for acid peptic disease and was started on pantoprazole and sucralfate, significant symptom relief. She apparently had history of weight loss in the past (for 5 years ? intentional). She did not report any loss of appetite or recent weight loss. Have advised her to follow-up with lawn specialist for further workup and management. Her urinalysis was abnormal but urine cultures were negative. Hospital course: Ms. Rodriguez is a 46 year old female - Time Spent with Patient Total time spent providing and/or coordinating discharge services: - Constitutional Vitals: Temp Pulse Resp BP Pulse Ox 97.8 F 79 14 135/85 97 04/03/16 07:59 04/03/16 06:00 04/03/16 06:00 04/03/16 06:00 04/03/16 06:00 General appearance: Present: A&O X 3 Exam: General: Not in acute distress at the time of my evaluation Lungs: Clear to auscultation Cardiac: Regular rate and rhythm. No significant murmurs Abdomen: mild epigastric tenderness. Bowel sounds present Neurological: Alert and oriented. No gross localizing deficits Psych: Not aggressive or agitated Extremities: no significant leg edema Skin: No generalized rash
[2016-04-03 13:33] VITALS: BP 139/87
== END 2016-04-03 15:06 | disposition home or self-care (01) | DRG 638 ==
LOC: EMEROO 19:24 → ICNU 19:24 → OBSVTOIN 23:20 → ICNU 04-02 00:23
PROVIDERS: ADMIT Internal Medicine; ATTEND Internal Medicine

== ENCOUNTER 2018-08-30 13:49 | Observation (INO) ==
[2018-08-30] MEDS ORDERED: Ondansetron 4 MG/2 ML VIAL IVP ONE (14:10)
[2018-08-30] MEDS ORDERED: 0.9 % Sodium Chloride 1,000 ML IVC ONE ×2 (14:10→14:53)
--- NOTE | 2018-08-30 14:14 | Emergency Department Note ---
Disposition Clinical Impression: Hyperglycemia, Nausea vomiting and diarrhea Disposition: Admitted As Inpatient Condition: Undetermined Time of Disposition: 16:06 General Adult HPI - General Chief complaint: ED Nausea/Vomiting/Diarrhea Stated complaint: Vomiting,Diahrrea Time Seen by Provider: 08/30/18 14:00 Source: patient Mode of arrival: ambulatory Limitations: no limitations Nursing Notes Reviewed: Yes Vital Signs Reviewed: Yes - History of Present Illness HPI Narrative: 48-year-old female with history of diabetes on insulin, hypertension, hyperlipidemia, hypothyroidism arrives to the emergency department with complaint of nausea, vomiting, diarrhea, lower abdominal pain that has been intermittent in nature over the course the past 5 days. The patient call PCP but has not seen anyone for this. Her vomiting is nonbilious and nonbloody and SANE with her stool. The patient also states that she is starting to feel like she is going to DKA. Patient denies any other complaints at this time. Vital signs demonstrate no tachycardia or hypotension noted. Pain Scale: 0 - Related Data Home Medications Medication Instructions Recorded Confirmed Levothyroxine 05/24/18 Lovastatin 05/24/18 Lisinopril 5 mg PO DAILY 07/02/18 08/30/18 Insulin DETEMIR [Levemir] 40 unit SQ HS 08/30/18 08/30/18 Previous Rx's Medication Instructions Recorded Insulin ASPART [Novolog] 0 - 30 units SQ QIDAC #1 vial 04/03/16 Ondansetron ODT [Zofran ODT] 4 mg SL Q6HR PRN #15 tab.rapdis 08/31/18 Allergies Allergy/AdvReac Type Severity Reaction Status Date / Time hydromorphone [From Dilaudid] Allergy Severe Palpitation Verified 05/24/18 13:42 s meloxicam [From Mobic] Allergy Rash Verified 07/02/18 16:07 Penicillins [PCN] AdvReac Severe Hives Verified 05/24/18 13:42 sulfamethoxazole AdvReac Severe Rash Verified 05/24/18 13:42 [From Bactrim] trimethoprim [From Bactrim] AdvReac Severe Rash Verified 05/24/18 13:42 bee stings Allergy Severe Swelling Uncoded 05/24/18 13:42 of Lip/Tongue/Throat All systems ED: reviewed and negative except as stated. Constitutional: Reports: weakness. Denies: fever, chills ENT ED: Denies: dysphagia Cardiovascular: Denies: chest pain Respiratory: Denies: dyspnea Gastrointestinal: Reports: abdominal pain, nausea, vomiting, diarrhea. Denies: constipation, hematemesis, melena, hematochezia Genitourinary: Denies: urgency, dysuria Musculoskeletal: Denies: back pain Integumentary: Denies: rash Neurological: Denies: headache Past Medical History - Past Medical History Attestation: Yes The following information was validated with the patient. Source: patient, old records reviewed Medical history: Reports: diabetes, hyperlipidemia, hypertension, thyroid disease Surgical history: Reports: cholecystectomy Psychiatric history: Reports: no psych history FUEL CELL BUILDER history: Reports: no FUEL CELL BUILDER history - Social History Smoking Status: Never smoker Smokeless Tobacco Status: No Alcohol use: Reports: none Drug use: Reports: none Physical Exam - General Limitations: no limitations General appearance: alert, in no apparent distress - Head Head exam: atraumatic, normocephalic, normal inspection - Eye Eye exam: Present: normal appearance, PERRL, EOMI - ENT ENT exam: normal exam, normal oropharynx, mucous membranes moist - Neck Neck exam: Present: normal inspection, full ROM, trachea midline - Chest Chest inspection: Present: normal inspection, symmetric chest wall rise - Respiratory Respiratory exam: Present: normal lung sounds bilaterally - Cardiovascular Cardiovascular exam: Present: regular rate, normal rhythm, normal heart sounds - Abdominal Exam Abdominal exam: Present: soft, tenderness (Lower abd). Absent: distention, guarding, rebound, rigidity, Ocasio's sign, Rovsing's sign, tenderness at McBurney's Point - Extremities Exam Extremities exam: Present: normal inspection, full ROM, normal capillary refill. Absent: tenderness, pedal edema - Neurological Exam Neurological exam: Present: alert, oriented X3 - Skin Skin exam: Present: warm, dry, intact, normal color Course Vital Signs Temperature 97.9 F 08/30/18 13:53 Pulse Rate 87 08/30/18 13:53 Respiratory Rate 18 08/30/18 13:53 Blood Pressure 144/85 08/30/18 13:53 O2 Sat by Pulse Oximetry 100 08/30/18 13:53 Temperature 97.9 F 08/30/18 14:09 Pulse Rate 79 08/30/18 15:37 Respiratory Rate 18 08/30/18 15:37 Blood Pressure 172/85 08/30/18 15:37 O2 Sat by Pulse Oximetry 98 08/30/18 15:37 Oxygen Delivery Oxygen Delivery Room Air Medical Decision Making - MDM Narrative Medical decision making narrative: Patient's workup in the emergency department demonstrates findings consistent with hyperglycemia with concern for HHS. The patient also was found to have a thickened bladder wall. This may be related to use infection versus infection but the urine is not obviously infected on evaluation. Patient will be given Diflucan here in the ED. The patient was administered subcutaneous insulin and multiple liters of IV fluid as well as antiemetic. Patient states overall she is feeling much better. In addition I did order a C. difficile because the patient had been on recent antibiotics roughly 3 weeks ago. The patient will be admitted to the hospital at this time given the patient's symptoms. Patient made aware and agrees to plan. No further questions or concerns. Accepted by Dr. Khan. - Lab Data Lab results reviewed: Yes I reviewed the patient's lab results. Result diagrams: 08/31/18 08:51 08/31/18 08:51 Lab Results 08/30/18 08/30/18 08/30/18 Range/Units 14:17 14:17 14:17 WBC 9.8 (4.3-11.1) K/mcL RBC 3.80 L (3.82-4.97) M/mcL Hgb 11.6 (11.5-15.4) g/dL Hct 32.2 L (35.3-44.9) % MCV 84.7 (83.0-100.0) fL MCH 30.5 (28.0-33.3) pg MCHC 36.0 H (31.6-35.5) g/dL RDW 11.4 L (11.5-14.5) % Plt Count 280 (140-400) K/mcL MPV 10.6 (9.4-12.4) fL Immature Gran % 0.4 (0-4) % Seg Neutrophils % 65.9 % Lymphocytes % 26.0 % Monocytes % 5.8 % Eosinophils % 1.4 % Basophils % 0.5 % Neutrophils # 6.4 (1.6-8.9) K/mcL Lymphocytes # 2.6 (0.6-4.6) K/mcL Monocytes # 0.6 (0.0-1.3) K/mcL Eosinophils # 0.1 (0.0-0.6) K/mcL Basophils # 0.1 (0.0-0.2) K/mcL VBG pH (7.32-7.42) pH Units VBG pCO2 (41-51) mmHg VBG pO2 (25-50) mmHg VBG HCO3 (21-27) mEq/L Sodium 129 L (136-145) mEq/L Potassium 3.7 (3.5-5.1) mEq/L Chloride 90 L (98-107) mEq/L Carbon Dioxide 32 H (23-29) mEq/L BUN 19 (6-20) mg/dL Creatinine 0.79 (0.60-1.20) mg/dL Est GFR ( Amer) > 60 (> 60) Est GFR (Non-Af Amer) > 60 (> 60) BUN/Creatinine Ratio 24 (6-26) Glucose 514 H* (70-105) mg/dL Calculated Osmolality 293 (280-300) Lactic Acid (0.5-2.2) mmol/L Calcium 9.6 (8.6-10.3) mg/dL Total Bilirubin 0.3 (0.3-1.0) mg/dL Direct Bilirubin 0.1 (0.0-0.2) mg/dL Indirect Bilirubin 0.2 (0.0-1.2) mg/dL AST 16 (13-39) Units/L ALT 18 (7-52) Units/L Alkaline Phosphatase 130 H (34-104) Units/L Troponin I < 0.03 (< 0.04) ng/mL Serum Total Protein 6.0 L (6.4-8.9) g/dL Albumin 2.9 L (3.5-5.7) g/dL Globulin 3.1 (2.4-3.5) g/dL Albumin/Globulin Ratio 0.9 L (1.1-2.2) Lipase 15 (11-82) Units/L Beta-Hydroxybutyric Acd 0.17 (0.02-0.27) mmol/L Urine Color (Yellow) Urine Clarity (Clear) Urine pH (5.0-8.0) pH Units Ur Specific [place] (1.010-1.025) Urine Protein (Neg-Trace) mg/dL Urine Glucose (UA) (Normal) mg/dL Urine Ketones (Negative) mg/dL Urine Blood (Negative) Urine Nitrite (Negative) Urine Bilirubin (Negative) Urine Urobilinogen (Normal) mg/dL Ur Leukocyte Esterase (Negative) Urine Microscopic RBC (0-3) per hpf Urine Microscopic WBC (0-3) per hpf Ur Squamous Epith Cells (None-Few) per lpf Urine Bacteria (None-Few) per hpf Hyaline Casts (None-Few) per lpf Urine Yeast (None Seen) per hpf Ur Culture Indicated? (NO) Urine Test (Negative) 08/30/18 08/30/18 08/30/18 Range/Units 14:34 14:44 14:44 WBC (4.3-11.1) K/mcL RBC (3.82-4.97) M/mcL Hgb (11.5-15.4) g/dL Hct (35.3-44.9) % MCV (83.0-100.0) fL MCH (28.0-33.3) pg MCHC (31.6-35.5) g/dL RDW (11.5-14.5) % Plt Count (140-400) K/mcL MPV (9.4-12.4) fL Immature Gran % (0-4) % Seg Neutrophils % % Lymphocytes % % Monocytes % % Eosinophils % % Basophils % % Neutrophils # (1.6-8.9) K/mcL Lymphocytes # (0.6-4.6) K/mcL Monocytes # (0.0-1.3) K/mcL Eosinophils # (0.0-0.6) K/mcL Basophils # (0.0-0.2) K/mcL VBG pH (7.32-7.42) pH Units VBG pCO2 (41-51) mmHg VBG pO2 (25-50) mmHg VBG HCO3 (21-27) mEq/L Sodium (136-145) mEq/L Potassium (3.5-5.1) mEq/L Chloride (98-107) mEq/L Carbon Dioxide (23-29) mEq/L BUN (6-20) mg/dL Creatinine (0.60-1.20) mg/dL Est GFR ( Amer) (> 60) Est GFR (Non-Af Amer) (> 60) BUN/Creatinine Ratio (6-26) Glucose (70-105) mg/dL Calculated Osmolality (280-300) Lactic Acid 1.8 (0.5-2.2) mmol/L Calcium (8.6-10.3) mg/dL Total Bilirubin (0.3-1.0) mg/dL Direct Bilirubin (0.0-0.2) mg/dL Indirect Bilirubin (0.0-1.2) mg/dL AST (13-39) Units/L ALT (7-52) Units/L Alkaline Phosphatase (34-104) Units/L Troponin I (< 0.04) ng/mL Serum Total Protein (6.4-8.9) g/dL Albumin (3.5-5.7) g/dL Globulin (2.4-3.5) g/dL Albumin/Globulin Ratio (1.1-2.2) Lipase (11-82) Units/L Beta-Hydroxybutyric Acd (0.02-0.27) mmol/L Urine Color Yellow (Yellow) Urine Clarity Clear (Clear) Urine pH 6.0 (5.0-8.0) pH Units Ur Specific [place] > 1.030 H (1.010-1.025) Urine Protein >=300 H (Neg-Trace) mg/dL Urine Glucose (UA) >=1000 H (Normal) mg/dL Urine Ketones Negative (Negative) mg/dL Urine Blood Small H (Negative) Urine Nitrite Negative (Negative) Urine Bilirubin Negative (Negative) Urine Urobilinogen Normal (Normal) mg/dL Ur Leukocyte Esterase Negative (Negative) Urine Microscopic RBC 3-5 H (0-3) per hpf Urine Microscopic WBC 3-5 H (0-3) per hpf Ur Squamous Epith Cells Moderate H (None-Few) per lpf Urine Bacteria Many H (None-Few) per hpf Hyaline Casts None Seen (None-Few) per lpf Urine Yeast Many H (None Seen) per hpf Ur Culture Indicated? YES A (NO) Urine Test Negative (Negative) 08/30/18 Range/Units 15:08 WBC (4.3-11.1) K/mcL RBC (3.82-4.97) M/mcL Hgb (11.5-15.4) g/dL Hct (35.3-44.9) % MCV (83.0-100.0) fL MCH (28.0-33.3) pg MCHC (31.6-35.5) g/dL RDW (11.5-14.5) % Plt Count (140-400) K/mcL MPV (9.4-12.4) fL Immature Gran % (0-4) % Seg Neutrophils % % Lymphocytes % % Monocytes % % Eosinophils % % Basophils % % Neutrophils # (1.6-8.9) K/mcL Lymphocytes # (0.6-4.6) K/mcL Monocytes # (0.0-1.3) K/mcL Eosinophils # (0.0-0.6) K/mcL Basophils # (0.0-0.2) K/mcL VBG pH 7.45 H (7.32-7.42) pH Units VBG pCO2 40 L (41-51) mmHg VBG pO2 185 H (25-50) mmHg VBG HCO3 28 H (21-27) mEq/L Sodium (136-145) mEq/L Potassium (3.5-5.1) mEq/L Chloride (98-107) mEq/L Carbon Dioxide (23-29) mEq/L BUN (6-20) mg/dL Creatinine (0.60-1.20) mg/dL Est GFR ( Amer) (> 60) Est GFR (Non-Af Amer) (> 60) BUN/Creatinine Ratio (6-26) Glucose (70-105) mg/dL Calculated Osmolality (280-300) Lactic Acid (0.5-2.2) mmol/L Calcium (8.6-10.3) mg/dL Total Bilirubin (0.3-1.0) mg/dL Direct Bilirubin (0.0-0.2) mg/dL Indirect Bilirubin (0.0-1.2) mg/dL AST (13-39) Units/L ALT (7-52) Units/L Alkaline Phosphatase (34-104) Units/L Troponin I (< 0.04) ng/mL Serum Total Protein (6.4-8.9) g/dL Albumin (3.5-5.7) g/dL Globulin (2.4-3.5) g/dL Albumin/Globulin Ratio (1.1-2.2) Lipase (11-82) Units/L Beta-Hydroxybutyric Acd (0.02-0.27) mmol/L Urine Color (Yellow) Urine Clarity (Clear) Urine pH (5.0-8.0) pH Units Ur Specific [place] (1.010-1.025) Urine Protein (Neg-Trace) mg/dL Urine Glucose (UA) (Normal) mg/dL Urine Ketones (Negative) mg/dL Urine Blood (Negative) Urine Nitrite (Negative) Urine Bilirubin (Negative) Urine Urobilinogen (Normal) mg/dL Ur Leukocyte Esterase (Negative) Urine Microscopic RBC (0-3) per hpf Urine Microscopic WBC (0-3) per hpf Ur Squamous Epith Cells (None-Few) per lpf Urine Bacteria (None-Few) per hpf Hyaline Casts (None-Few) per lpf Urine Yeast (None Seen) per hpf Ur Culture Indicated? (NO) Urine Test (Negative) - Radiology Data Radiology results reviewed: Yes I reviewed the patient's radiology results. Abdomen/Pelvis CT 08/30/18 14:10 IMPRESSION: 1. Mild circumferential thickening of the bladder wall. Please correlate with clinical symptoms of cystitis. 2. Small amount of free fluid in the pelvis. 3. Circumferential diffuse subcutaneous edema. Please correlate with clinical symptoms of anasarca. 4. Cholecystectomy. D/ / 08/30/2018 15:32:08 Rafael Mittal MD / vasquez Interpreting Provider: Rafael Mittal MD - EKG Data EKG #1 EKG attestation: Yes I reviewed and interpreted this EKG. EKG results narrative: Heart rate 85 beats for minute. Normal sinus rhythm. No ST elevation or ST depression noted. Flattening of the T waves noted throughout. No other acute changes noted. Attestation Statement - Attestation Attestation: Resident Attestation: I examined this patient and my medical decision making was reviewed with the Resident Physician. I agree with the documented findings, disposition and treatment plan as described except to the extent set forth below. We independently had [id number] contact with the patient.EKG reviewed with resident physician. Agree with documentation. Patient presenting for evaluation of high blood sugars as well as nausea and vomiting. Patient will undergo further evaluation emergency department includin g blood work and symptomatically treatment. Patient's abdomen without significant tenderness to palpation. No rebound or guarding. Patient will likely require admission secondary to above symptoms.
[2018-08-30 14:30] LABS: Basophils # 0.1 K/mcL (0.0-0.2); Basophils % 0.5 %; Eosinophils # 0.1 K/mcL (0.0-0.6); Eosinophils % 1.4 %; Hematocrit 32.2 % (35.3-44.9); Hemoglobin 11.6 g/dL (11.5-15.4); Immature Granulocytes % 0.4 % (0-4); Lymphocytes # 2.6 K/mcL (0.6-4.6); Mean Corpuscular Hemoglobin 30.5 pg (28.0-33.3); Mean Corpuscular Volume 84.7 fL (83.0-100.0); Mean Platelet Volume 10.6 fL (9.4-12.4); Monocytes # 0.6 K/mcL (0.0-1.3); Monocytes % 5.8 %; Neutrophils # 6.4 K/mcL (1.6-8.9); Platelet Count 280 K/mcL (140-400); Red Cell Distribution Width 11.4 % (11.5-14.5); Segmented Neutrophils % 65.9 %; White Blood Count 9.8 K/mcL (4.3-11.1)
[2018-08-30 14:53] LABS: Alanine Aminotransferase 18 Units/L (7-52); Albumin 2.9 g/dL (3.5-5.7); Albumin/Globulin Ratio 0.9 (1.1-2.2); Alkaline Phosphatase 130 Units/L (34-104); Aspartate Amino Transferase 16 Units/L (13-39); BUN/Creatinine Ratio 24 (6-26); Bilirubin,Direct 0.1 mg/dL (0.0-0.2); Bilirubin,Indirect 0.2 mg/dL (0.0-1.2); Bilirubin,Total 0.3 mg/dL (0.3-1.0); Blood Urea Nitrogen 19 mg/dL (6-20); Calcium 9.6 mg/dL (8.6-10.3); Carbon Dioxide 32 mEq/L (23-29); Chloride 90 mEq/L (98-107); Globulin 3.1 g/dL (2.4-3.5); Glucose 514 mg/dL (70-105); Lipase 15 Units/L (11-82); Osmolality,Calculated 293 (280-300); Potassium 3.7 mEq/L (3.5-5.1); Sodium 129 mEq/L (136-145); Troponin I < 0.03 ng/mL (< 0.04); eGFR For African Americans > 60 (> 60); eGFR For Non-African Americans > 60 (> 60)
[2018-08-30 15:04] LABS: Bilirubin,Urine Negative (Negative); Blood,Urine Small (Negative); Clarity,Urine Clear (Clear); Color,Urine Yellow (Yellow); Glucose,Urine (UA) >=1000 mg/dL (Normal); Ketones,Urine Negative (Negative); Leukocyte Esterase,Urine Negative (Negative); Nitrite,Urine Negative (Negative); Protein,Urine >=300 mg/dL (Neg-Trace); Specific Gravity,Urine > 1.030 (1.010-1.025); Urobilinogen,Urine Normal (Normal)
[2018-08-30 15:07] LABS: Hyaline Casts,Urine None Seen per lpf (None-Few)
[2018-08-30 15:10] LABS: VBG HCO3 28 mEq/L (21-27); VBG PCO2 40 mmHg (41-51); VBG PH 7.45 pH Units (7.32-7.42); VBG PO2 185 mmHg (25-50)
[2018-08-30 15:18] LABS: Squamous Epithelial Cell,Urine Moderate per lpf (None-Few)
[2018-08-30 15:20] LABS: Yeast,Urine Many per hpf (None Seen)
[2018-08-30 15:21] LABS: Bacteria,Urine Many per hpf (None-Few)
[2018-08-30] MEDS ORDERED: Insulin Regular, Human 100 UNIT/ML SQ ONE (15:53)
[2018-08-30] MEDS ORDERED: Fluconazole 100 MG TABLET PO ONE (15:54)
[2018-08-30] MEDS ORDERED: Ondansetron 4 MG/2 ML VIAL IVP PRN (16:51)
[2018-08-30] MEDS ORDERED: Naloxone 0.4 MG/ML INJ IVP PRN (16:51)
[2018-08-30] MEDS ORDERED: Dextrose Gel 15 GM/37.5 ML TUBE PO PRN ×2 (17:08)
[2018-08-30] MEDS ORDERED: *HR* Dextrose 50 % in Water (Syg) 50 ML SYRINGE IVP PRN (17:08)
[2018-08-30] MEDS ORDERED: D5% in Water 1,000 ML IVC PRN (17:08)
--- NOTE | 2018-08-30 17:13 | Internal Med History&Physical ---
Date of Encounter: 08/30/18 Time of Encounter: 16:45 Internal Medicine - H&P: HPI Chief complaint: N/V/diarrhea Admitted From: Home History of present illness: Ms. Rodriguez is a 48 year old female with history of insulin-dependent diabetes, hypertension, hyperthyroidism, presented to the ED with nausea and vomiting. Started around 5 days ago, associated with subjective fever but denies any sick contacts. She vomited about 3-4 times every day since then, nonbilious, nonbloody. Also had loose stools x 4 episodes since Thursday. Because she was having multiple episodes of vomiting and diarrhea, she did not use her insulin as prescribed. She also states that she took a short course of Keflex last week for L LE cellulitis. No chest pain, shortness of breath, palpitation, orthopnea, PND, leg swelling. Denies any dysuria, urinary frequency, urinary retention, or hematuria. No flank pain. In the ED, she was afebrile and hemodynamically stable. Labwork showed glucose of 514 and sodium of 129 but otherwise normal. Troponin was negative, EKG showed normal sinus rhythm. Both beta hydroxybutyrate acid and lactic acid were negative. CT scan showed mild circumferential thickening of the bladder wall. She was given 2 L of IV fluid, 10 units of subcutaneous insulin, potassium supplement, and admitted for further management. Past Med Surg Social Fam HX - Past Medical History Medical history: diabetes, hyperlipidemia, hypertension, thyroid disease Psychiatric history: no psych history - Past Surgical History Surgical History: cholecystectomy - Social History Smoking Status: Never smoker Smokeless Tobacco Status: No Alcohol use: none Drug use: none - Additional Family History Additional family history: Multiple family members with DM Internal Medicine - H&P: Meds Insulin ASPART [Novolog] 0 - 30 units SQ [facility] #1 vial 04/03/16 [Rx] Levothyroxine 05/24/18 [History] Lovastatin 05/24/18 [History] Lasix 07/02/18 [History] Lisinopril 07/02/18 [History] Allergy/AdvReac Type Severity Reaction Status Date / Time hydromorphone [From Dilaudid] Allergy Severe Palpitation Verified 05/24/18 13:42 s meloxicam [From Mobic] Allergy Rash Verified 07/02/18 16:07 Penicillins [PCN] AdvReac Severe Hives Verified 05/24/18 13:42 sulfamethoxazole AdvReac Severe Rash Verified 05/24/18 13:42 [From Bactrim] trimethoprim [From Bactrim] AdvReac Severe Rash Verified 05/24/18 13:42 bee stings Allergy Severe Swelling Uncoded 05/24/18 13:42 of Lip/Tongue/Throat All Systems PM: A 10-system review of systems was performed and is negative for pertinent findings except as documented above in the HPI. - Constitutional Vitals: Temp Pulse Resp BP Pulse Ox 97.9 F 82 18 166/85 98 08/30/18 14:09 08/30/18 16:30 08/30/18 16:30 08/30/18 16:30 08/30/18 16:30 Exam: General: Alert and oriented, not in acute distress. HEENT:EOMI, pupils equal, round and reactive. Cardiovascular:Normal S1 & S2, No JVD. Pulse regular. Lungs: clear to auscultation, no wheezes/rales Abdomen:Soft, very minimal tenderness over periumblical region. No re bound/rigidity/guarding. : No CVA tenderness Extremities:No deformity or swelling Neurological:Normal cognition and motor skills. Non-focal Skin:Normal color, no rash, no lesions. Pulses:Carotid and radial pulses normal +2. Rest of the physical exam is non contributory Internal Med - H&P Results - Labs CBC & Chem 7: 08/30/18 14:17 08/30/18 14:17 Labs: Short CBC 08/30/18 Range/Units 14:17 WBC 9.8 (4.3-11.1) K/mcL Hgb 11.6 (11.5-15.4) g/dL Hct 32.2 L (35.3-44.9) % Plt Count 280 (140-400) K/mcL Neutrophils # 6.4 (1.6-8.9) K/mcL BMP 08/30/18 14:17 Sodium 129 L Potassium 3.7 Chloride 90 L Carbon Dioxide 32 H BUN 19 Creatinine 0.79 Glucose 514 H* Calcium 9.6 Cardiac Enzymes 08/30/18 Range/Units 14:17 Troponin I < 0.03 (< 0.04) ng/mL Liver Function 08/30/18 Range/Units 14:17 Total Bilirubin 0.3 (0.3-1.0) mg/dL Direct Bilirubin 0.1 (0.0-0.2) mg/dL AST 16 (13-39) Units/L ALT 18 (7-52) Units/L Alkaline Phosphatase 130 H (34-104) Units/L Albumin 2.9 L (3.5-5.7) g/dL Urine 08/30/18 Range/Units 14:44 Urine Color Yellow (Yellow) Urine Clarity Clear (Clear) Urine pH 6.0 (5.0-8.0) pH Units Ur Specific [place] > 1.030 H (1.010-1.025) Urine Protein >=300 H (Neg-Trace) mg/dL Urine Glucose (UA) >=1000 H (Normal) mg/dL - ABG Interpretation ABG results: 08/30/18 15:08 VBG pH 7.45 H VBG pCO2 40 L VBG pO2 185 H VBG HCO3 28 H - Impressions ITS Impressions Abdomen/Pelvis CT 08/30/18 14:10 IMPRESSION: 1. Mild circumferential thickening of the bladder wall. Please correlate with clinical symptoms of cystitis. 2. Small amount of free fluid in the pelvis. 3. Circumferential diffuse subcutaneous edema. Please correlate with clinical symptoms of anasarca. 4. Cholecystectomy. D/ / 08/30/2018 15:32:08 Rafael Mittal MD / [facility] Interpreting Provider: Rafael Mittal MD - Assessment and Plan (1) Hyperglycemia Current Visit: Yes Status: Acute Assessment and plan: in the setting of probable viral gastroenteritis and missing few insulin doses BG 514 upon presentation with pseudohyponatremia. Beta hydroxybutyrate acid negative given SQ insulin 10U, will continue moderate dose slding scale coverage (2) Viral gastroenteritis Current Visit: Yes Status: Acute Assessment and plan: Her history appears to be consistent with viral gastroenteritis but she dose have recent abx exposure No leukocytosis, CT did not show any evidence of significant colitis or enteritis rule out c diff IVF, electrolyte supplementation (3) HTN (hypertension) Current Visit: No Status: Chronic Assessment and plan: resume home meds once reconciled Qualifiers: Hypertension type: unspecified Qualified Code(s): I10 - Essential (primary) hypertension (4) Hypothyroid Current Visit: No Status: Chronic Assessment and plan: resume home meds once reconciled Qualifiers: Hypothyroidism type: unspecified Qualified Code(s): E03.9 - Hypothyroidism, unspecified (5) DVT prophylaxis Current Visit: Yes Status: Acute Assessment and plan: EPCD - Time Spent With Patient Total time spent is greater than 50% in coordination of care (as documented) at patient's floor/unit and/or counseling patient: 25 - 35 minutes
[2018-08-30] MEDS ORDERED: *HR* Labetalol 20 MG/4 ML SYRINGE IVP PRN (17:20)
[2018-08-30] MEDS: Ringers Solution, Lactated 1,000 ML IVC SCH (18:37)
[2018-08-30] MEDS ORDERED: Insulin LISPRO 300 UNITS/3 ML VIAL SQ SCH (21:00)
[2018-08-31] MEDS: Ringers Solution, Lactated 1,000 ML IVC SCH (05:49)
[2018-08-31 06:53] VITALS: BP 163/94
[2018-08-31] MEDS ORDERED: Insulin LISPRO 300 UNITS/3 ML VIAL SQ SCH (07:30)
[2018-08-31 09:31] LABS: Basophils # 0.1 K/mcL (0.0-0.2); Basophils % 0.5 %; Eosinophils # 0.2 K/mcL (0.0-0.6); Eosinophils % 1.7 %; Hematocrit 31.9 % (35.3-44.9); Hemoglobin 11.1 g/dL (11.5-15.4); Immature Granulocytes % 0.4 % (0-4); Lymphocytes # 2.9 K/mcL (0.6-4.6); Lymphocytes % 26.1 %; Mean Corpuscular HGB Conc 34.8 g/dL (31.6-35.5); Mean Corpuscular Hemoglobin 30.3 pg (28.0-33.3); Mean Corpuscular Volume 87.2 fL (83.0-100.0); Mean Platelet Volume 9.8 fL (9.4-12.4); Monocytes # 0.7 K/mcL (0.0-1.3); Monocytes % 5.9 %; Neutrophils # 7.2 K/mcL (1.6-8.9); Platelet Count 253 K/mcL (140-400); Red Blood Count 3.66 M/mcL (3.82-4.97); Red Cell Distribution Width 11.6 % (11.5-14.5); Segmented Neutrophils % 65.4 %
[2018-08-31 09:51] LABS: BUN/Creatinine Ratio 20 (6-26); Blood Urea Nitrogen 13 mg/dL (6-20); Calcium 9.3 mg/dL (8.6-10.3); Carbon Dioxide 33 mEq/L (23-29); Chloride 99 mEq/L (98-107); Glucose 87 mg/dL (70-105); Magnesium 1.6 mg/dL (1.6-2.6); Osmolality,Calculated 277 (280-300); Potassium 3.8 mEq/L (3.5-5.1); Sodium 134 mEq/L (136-145); eGFR For African Americans > 60 (> 60); eGFR For Non-African Americans > 60 (> 60)
--- NOTE | 2018-08-31 10:00 | Discharge Summary ---
- NOTES TO OUTPATIENT PROVIDER Notes to Outpatient Provider: Follow-up with PCP as an outpatient, lasix on hold till then Orders not resulted at time of discharge: Pending orders 08/30/18 14:09 ECG 12 lead ECG [ECG] Stat 08/30/18 14:44 Culture,Urine [RM] Stat 08/30/18 15:17 C diff [C.difficile Toxin PCR (>=2yo)] [MOLMIC] Stat 08/30/18 22:52 GI Panel,Stool [MOLMIC] Routine Date of Encounter: 08/31/18 Time of Encounter: 07:30 - Discharge Diagnosis (1) Hyperglycemia Priority: Primary Status: Acute (2) Viral gastroenteritis Priority: Secondary Status: Acute (3) HTN (hypertension) Priority: Secondary Status: Chronic Qualifiers: Hypertension type: unspecified Qualified Code(s): I10 - Essential (primary) hypertension (4) Hypothyroid Priority: Secondary Status: Chronic Qualifiers: Hypothyroidism type: unspecified Qualified Code(s): E03.9 - Hypothyroidism, unspecified (5) DVT prophylaxis Priority: Secondary Status: Acute Hospital course: Ms. Rodriguez is a 48 year old female with history of insulin-dependent diabetes, hypertension, hyperthyroidism, who was admitted for [facility] in the setting of viral GE. Did not observe any episodes of diarrhea while inpatient. No signs of DKA. Clinically improved with insulin and IVF and will be discharged home with close PCP follow up. ALthough CT scan demonstrated circumferential wall thickening of the bladder, patient did not have any symptoms suggestive of UTI and urinalysis was also negative for nitrite or leukocyte esterase hence abx was not given to the patient. Given her dehydration, Lasix remain on hold till PCP follow up Discharge discussed with: patient, family, nurse - Time Spent with Patient Total time spent providing and/or coordinating discharge services: 26 mins - Discharge Medications Prescriptions: Continued Insulin ASPART [Novolog] 0 - 30 units SQ [facility] #1 vial Lovastatin Levothyroxine Lisinopril 5 mg PO DAILY Insulin DETEMIR [Levemir] 40 unit SQ HS Discontinued Lasix 40 mg PO DAILY Home Medications: Insulin ASPART [Novolog] 0 - 30 units SQ [facility] #1 vial 04/03/16 [Rx] Levothyroxine 05/24/18 [History] Lovastatin 05/24/18 [History] Lisinopril 5 mg PO DAILY 07/02/18 [History] Insulin DETEMIR [Levemir] 40 unit SQ HS 08/30/18 [History] Allergies/Adverse Reactions: Allergy/AdvReac Type Severity Reaction Status Date / Time hydromorphone [From Dilaudid] Allergy Severe Palpitation Verified 05/24/18 13:42 s meloxicam [From Mobic] Allergy Rash Verified 07/02/18 16:07 Penicillins [PCN] AdvReac Severe Hives Verified 05/24/18 13:42 sulfamethoxazole AdvReac Severe Rash Verified 05/24/18 13:42 [From Bactrim] trimethoprim [From Bactrim] AdvReac Severe Rash Verified 05/24/18 13:42 bee stings Allergy Severe Swelling Uncoded 05/24/18 13:42 of Lip/Tongue/Throat Date of admission: 08/30/18 16:44 Primary care physician: Marvin Mari MD - Constitutional Vitals: Temp Pulse Resp BP Pulse Ox 98.0 F 83 14 163/94 100 08/31/18 06:51 08/31/18 06:51 08/31/18 06:51 08/31/18 06:51 08/31/18 06:51 Exam: General: Alert and oriented, not in acute distress. Cardiovascular:Normal S1 & S2, No JVD. Pulse regular. Lungs: clear to auscultation, no wheezes/rales Abdomen:Soft, very minimal tenderness over periumblical region. No rebound/rigidity/guarding. : No CVA tenderness Extremities:No deformity or swelling Neurological:Normal cognition and motor skills. Non-focal - Patient Status Disposition: Home, Self-Care Condition: Undetermined Functional capacity at discharge: independent ambulation Overall status at discharge: patient is progressing back to baseline - Discharge Instructions Instructions: Gastroenteritis (DC), Hypothyroidism (DC) Follow Up With: Marvin Mari MD [Primary Care Provider] - Additional Instructions: Lasix on hold till PCP follow up - Diet and Activity Activity: resume usual activities as tolerated Diet: advance to your usual diet
--- NOTE | 2018-08-31 15:51 | Electrocardiograph Report ---
[place] [id number] Test Date: 2018-08-30 Pat Name: Shruthi Rodriguez Department: EXAM1 Room: 2NE28 Gender: F [place]arf Hand: : 1970 Requested By: Tony Coto Order Number: [id number] Reading MD: Tu Reyna Measurements Intervals Qulin Rate: 85 P: 63 ME: 128 QRS: 24 QRSD: 91 T: 23 QT: 413 QTc: 492 Interpretive Statements Sinus rhythm Low voltage, precordial leads Possible septal infarct, age undetermined Electronically Signed On 08-31-2018 15:50:37 EDT by Tu Reyna
== END 2018-08-31 12:06 | disposition home or self-care (01) ==
LOC: EMEROOARM 13:49 → 2NENU 13:49 → SUATTDRO 16:44 → 2NENU 17:25
PROVIDERS: ADMIT Internal Medicine Nephrology; ATTEND Internal Medicine

== ENCOUNTER 2019-03-10 23:11 | Inpatient (IN) ==
[2019-03-10] MEDS ORDERED: Insulin Regular, Human 100 UNIT/ML IV ONE (23:18)
[2019-03-10] MEDS ORDERED: *HR* Dextrose 50 % in Water (Syg) 50 ML SYRINGE IVP PRN (23:18)
[2019-03-10] MEDS ORDERED: 0.9 % Sodium Chloride 1,000 ML IVC SCH (23:30)
[2019-03-10] MEDS ORDERED: Insulin Human Regular 100 UNIT in 0.9 % Sodium Chloride 100 ML IVC SCH (23:30)
[2019-03-10 23:47] LABS: ABG Base Excess 3 mEq/L (-2 to 3); ABG HCO3 29 mEq/L (21-27); ABG Oxygen Saturation 96 % (95-98); ABG PCO2 51 mmHg (35-45); ABG PH 7.37 pH Units (7.32-7.45); ABG PO2 84 mmHg (85-104); ABG TCO2 31 mEq/L (20-26)
[2019-03-11 00:54] LABS: Basophils % 0.3 %; Eosinophils # 0.1 K/mcL (0.0-0.6); Eosinophils % 0.9 %; Hematocrit 29.2 % (35.3-44.9); Hemoglobin 9.9 g/dL (11.5-15.4); Lymphocytes # 0.8 K/mcL (0.6-4.6); Lymphocytes % 5.8 %; Mean Corpuscular HGB Conc 33.9 g/dL (31.6-35.5); Mean Corpuscular Hemoglobin 30.7 pg (28.0-33.3); Mean Corpuscular Volume 90.4 fL (83.0-100.0); Mean Platelet Volume 10.3 fL (9.4-12.4); Monocytes # 0.9 K/mcL (0.0-1.3); Monocytes % 5.8 %; Neutrophils # 12.6 K/mcL (1.6-8.9); Platelet Count 470 K/mcL (140-400); Red Blood Count 3.23 M/mcL (3.82-4.97); Red Cell Distribution Width 12.3 % (11.5-14.5); Segmented Neutrophils % 86.2 %; White Blood Count 14.6 K/mcL (4.3-11.1)
[2019-03-11 01:27] LABS: Alanine Aminotransferase 14 Units/L (7-52); Albumin 2.1 g/dL (3.5-5.7); Albumin/Globulin Ratio 0.7 (1.1-2.2); Alkaline Phosphatase 160 Units/L (34-104); Aspartate Amino Transferase 15 Units/L (13-39); BUN/Creatinine Ratio 22 (6-26); Bilirubin,Total 0.2 mg/dL (0.3-1.0); Blood Urea Nitrogen 21 mg/dL (6-20); Calcium 8.5 mg/dL (8.6-10.3); Carbon Dioxide 28 mEq/L (23-29); Chloride 89 mEq/L (98-107); Globulin 3.2 g/dL (2.4-3.5); Glucose 783 mg/dL (70-105); Osmolality,Calculated 303 (280-300); Potassium 4.1 mEq/L (3.5-5.1); Sodium 126 mEq/L (136-145); Total Protein 5.3 g/dL (6.4-8.9); Troponin I 0.05 ng/mL (< 0.04); eGFR For African Americans > 60 (> 60); eGFR For Non-African Americans > 60 (> 60)
[2019-03-11 01:27] LABS: Amphetamine Screen,Urine Negative ng/mL (Cutoff=1000); Barbiturate Screen,Urine Negative ng/mL (Cutoff=200); Benzodiazepines Screen,Urine Negative ng/mL (Cutoff=200); Cannabinoid Screen,Urine Negative ng/mL (Cutoff = 50); Cocaine Screen,Urine Negative ng/mL (Cutoff= 300); Opiate Screen,Urine Negative ng/mL (Cutoff=300); Phencyclidine Screen,Urine Negative ng/mL (Cutoff=25)
[2019-03-11] MEDS ORDERED: Furosemide 40 MG/4 ML VIAL IVP ONE (01:43)
[2019-03-11 02:40] LABS: Bilirubin,Urine Negative (Negative); Blood,Urine Trace (Negative); Clarity,Urine Clear (Clear); Color,Urine Dark Yellow (Yellow); Glucose,Urine (UA) >=1000 mg/dL (Normal); Ketones,Urine Trace mg/dL (Negative); Leukocyte Esterase,Urine Negative (Negative); Nitrite,Urine Positive (Negative); Protein,Urine >=300 mg/dL (Neg-Trace); Specific Gravity,Urine 1.025 (1.010-1.025); Urobilinogen,Urine Normal (Normal)
[2019-03-11 02:53] LABS: Bacteria,Urine Many per hpf (None-Few); RBC,Urine 0-3 per hpf (0-3); WBC,Urine 0-3 per hpf (0-3)
[2019-03-11] MEDS ORDERED: Insulin LISPRO 300 UNITS/3 ML VIAL SQ PRN (02:55)
[2019-03-11] MEDS ORDERED: 0.45 % Sodium Chloride w/KCl 20 MEQ/1,000 ML MLS IVC SCH ×2 (03:00)
[2019-03-11 03:59] LABS: BUN/Creatinine Ratio 21 (6-26); Blood Urea Nitrogen 21 mg/dL (6-20); Calcium 9.1 mg/dL (8.6-10.3); Carbon Dioxide 29 mEq/L (23-29); Chloride 89 mEq/L (98-107); Glucose 737 mg/dL (70-105); Osmolality,Calculated 306 (280-300); Potassium 3.7 mEq/L (3.5-5.1); Sodium 129 mEq/L (136-145); eGFR For African Americans > 60 (> 60); eGFR For Non-African Americans > 60 (> 60)
[2019-03-11] MEDS: Levothyroxine 25 MCG TABLET PO SCH (05:28)
[2019-03-11] MEDS: *HR* Heparin 5,000 UNIT/ML VIAL SQ SCH ×3 (07:01→20:39)
[2019-03-11 07:04] LABS: Basophils # 0.1 K/mcL (0.0-0.2); Basophils % 0.4 %; Eosinophils # 0.1 K/mcL (0.0-0.6); Eosinophils % 0.7 %; Hematocrit 25.8 % (35.3-44.9); Hemoglobin 8.8 g/dL (11.5-15.4); Immature Granulocytes % 0.5 % (0-4); Lymphocytes # 1.9 K/mcL (0.6-4.6); Lymphocytes % 12.2 %; Mean Corpuscular HGB Conc 34.1 g/dL (31.6-35.5); Mean Corpuscular Hemoglobin 30.9 pg (28.0-33.3); Mean Corpuscular Volume 90.5 fL (83.0-100.0); Mean Platelet Volume 9.8 fL (9.4-12.4); Monocytes # 1.4 K/mcL (0.0-1.3); Monocytes % 9.3 %; Neutrophils # 11.6 K/mcL (1.6-8.9); Platelet Count 419 K/mcL (140-400); Red Blood Count 2.85 M/mcL (3.82-4.97); Red Cell Distribution Width 12.1 % (11.5-14.5); Segmented Neutrophils % 76.9 %; White Blood Count 15.1 K/mcL (4.3-11.1)
[2019-03-11 07:25] LABS: BUN/Creatinine Ratio 22 (6-26); Blood Urea Nitrogen 21 mg/dL (6-20); Calcium 8.7 mg/dL (8.6-10.3); Carbon Dioxide 29 mEq/L (23-29); Chloride 91 mEq/L (98-107); Glucose 541 mg/dL (70-105); Osmolality,Calculated 298 (280-300); Potassium 3.5 mEq/L (3.5-5.1); Sodium 130 mEq/L (136-145); eGFR For African Americans > 60 (> 60); eGFR For Non-African Americans > 60 (> 60)
[2019-03-11] MEDS: Furosemide 40 MG/4 ML VIAL IVP SCH ×2 (08:02→20:39)
[2019-03-11 09:02] LABS: BUN/Creatinine Ratio 23 (6-26); Blood Urea Nitrogen 21 mg/dL (6-20); Calcium 8.6 mg/dL (8.6-10.3); Carbon Dioxide 26 mEq/L (23-29); Chloride 92 mEq/L (98-107); Glucose 448 mg/dL (70-105); Osmolality,Calculated 290 (280-300); Potassium 3.7 mEq/L (3.5-5.1); Sodium 129 mEq/L (136-145); eGFR For African Americans > 60 (> 60); eGFR For Non-African Americans > 60 (> 60)
[2019-03-11 09:14] LABS: Triiodothyronine (T3) Free 2.08 pg/mL (2.50-3.90)
[2019-03-11 09:52] LABS: Estimated Average Glucose 433 mg/dl
[2019-03-11 10:52] LABS: BUN/Creatinine Ratio 22 (6-26); Blood Urea Nitrogen 21 mg/dL (6-20); Calcium 8.4 mg/dL (8.6-10.3); Carbon Dioxide 29 mEq/L (23-29); Chloride 94 mEq/L (98-107); Glucose 340 mg/dL (70-105); Osmolality,Calculated 286 (280-300); Potassium 3.5 mEq/L (3.5-5.1); Sodium 130 mEq/L (136-145); eGFR For African Americans > 60 (> 60); eGFR For Non-African Americans > 60 (> 60)
[2019-03-11] MEDS ORDERED: D5% in 0.45% NACL w KCl 20 MEQ/1,000 ML MLS IVC PRN (12:15)
[2019-03-11] MEDS ORDERED: Insulin Human Regular 100 UNIT in 0.9 % Sodium Chloride 100 ML IVC SCH (12:15)
[2019-03-11] MEDS: Spironolactone 25 MG TABLET PO SCH (13:28)
[2019-03-11] MEDS: cefTRIAXone 1,000 MG in Water for inj. (sterile) 10 ML IVP SCH (13:28)
[2019-03-11] MEDS ORDERED: Insulin DETEMIR 100 UNIT/ML X5UNITS SQ ONE ×2 (14:51→21:00)
[2019-03-11] MEDS ORDERED: Dextrose Gel 15 GM/37.5 ML TUBE PO PRN ×2 (14:51)
[2019-03-11] MEDS ORDERED: *HR* Dextrose 50 % in Water (Syg) 50 ML SYRINGE IVP PRN (14:51)
[2019-03-11] MEDS ORDERED: D5% in Water 1,000 ML IVC PRN (14:51)
[2019-03-11 15:23] LABS: BUN/Creatinine Ratio 22 (6-26); Blood Urea Nitrogen 21 mg/dL (6-20); Calcium 8.6 mg/dL (8.6-10.3); Carbon Dioxide 30 mEq/L (23-29); Chloride 93 mEq/L (98-107); Glucose 149 mg/dL (70-105); Osmolality,Calculated 278 (280-300); Potassium 3.6 mEq/L (3.5-5.1); Sodium 131 mEq/L (136-145); eGFR For African Americans > 60 (> 60); eGFR For Non-African Americans > 60 (> 60)
[2019-03-11] MEDS: Insulin LISPRO 300 UNITS/3 ML VIAL SQ SCH ×2 (16:49)
[2019-03-11 18:27] LABS: Protein/Creatinine Ratio,Urine 10.27 mg/mg (0.00-0.20)
[2019-03-12 04:42] LABS: Hematocrit 25.8 % (35.3-44.9); Hemoglobin 8.8 g/dL (11.5-15.4); Mean Corpuscular HGB Conc 34.1 g/dL (31.6-35.5); Mean Corpuscular Hemoglobin 30.6 pg (28.0-33.3); Mean Corpuscular Volume 89.6 fL (83.0-100.0); Mean Platelet Volume 10.3 fL (9.4-12.4); Platelet Count 390 K/mcL (140-400); Red Blood Count 2.88 M/mcL (3.82-4.97); Red Cell Distribution Width 12.3 % (11.5-14.5); White Blood Count 16.4 K/mcL (4.3-11.1)
[2019-03-12 04:59] LABS: BUN/Creatinine Ratio 19 (6-26); Blood Urea Nitrogen 21 mg/dL (6-20); Calcium 8.5 mg/dL (8.6-10.3); Carbon Dioxide 32 mEq/L (23-29); Chloride 94 mEq/L (98-107); Glucose 60 mg/dL (70-105); Osmolality,Calculated 271 (280-300); Potassium 4.1 mEq/L (3.5-5.1); Sodium 130 mEq/L (136-145); eGFR For African Americans > 60 (> 60); eGFR For Non-African Americans 53 (> 60)
[2019-03-12] MEDS: *HR* Heparin 5,000 UNIT/ML VIAL SQ SCH ×3 (06:31→22:23)
[2019-03-12] MEDS: Levothyroxine 25 MCG TABLET PO SCH (06:31)
[2019-03-12] MEDS: cefTRIAXone 1,000 MG in Water for inj. (sterile) 10 ML IVP SCH (08:05)
[2019-03-12] MEDS: Furosemide 40 MG/4 ML VIAL IVP SCH ×2 (08:05→22:23)
[2019-03-12] MEDS: Spironolactone 25 MG TABLET PO SCH (08:05)
[2019-03-12] MEDS: Insulin LISPRO 300 UNITS/3 ML VIAL SQ SCH ×6 (08:06→17:28)
[2019-03-12] MEDS ORDERED: Insulin DETEMIR 100 UNIT/ML X5UNITS SQ SCH (21:00)
[2019-03-12] MEDS: Insulin DETEMIR 100 UNIT/ML X5UNITS SQ SCH (23:00)
[2019-03-13 05:54] LABS: Hematocrit 25.7 % (35.3-44.9); Hemoglobin 8.7 g/dL (11.5-15.4); Mean Corpuscular HGB Conc 33.9 g/dL (31.6-35.5); Mean Corpuscular Hemoglobin 30.6 pg (28.0-33.3); Mean Corpuscular Volume 90.5 fL (83.0-100.0); Platelet Count 425 K/mcL (140-400); Red Blood Count 2.84 M/mcL (3.82-4.97); Red Cell Distribution Width 12.5 % (11.5-14.5); White Blood Count 18.8 K/mcL (4.3-11.1)
[2019-03-13] MEDS: *HR* Heparin 5,000 UNIT/ML VIAL SQ SCH ×3 (05:54→20:37)
[2019-03-13] MEDS: Levothyroxine 25 MCG TABLET PO SCH (05:54)
[2019-03-13 06:14] LABS: Albumin 1.9 g/dL (3.5-5.7); Albumin/Globulin Ratio 0.7 (1.1-2.2); Bilirubin,Total 0.2 mg/dL (0.3-1.0); Calcium 8.5 mg/dL (8.6-10.3); Globulin 2.9 g/dL (2.4-3.5); Total Protein 4.8 g/dL (6.4-8.9)
[2019-03-13 08:18] LABS: Alanine Aminotransferase 12 Units/L (7-52); Albumin 1.9 g/dL (3.5-5.7); Albumin/Globulin Ratio 0.7 (1.1-2.2); Alkaline Phosphatase 109 Units/L (34-104); Aspartate Amino Transferase 23 Units/L (13-39); Bilirubin,Indirect 0.1 mg/dL (0.0-1.0); Bilirubin,Total 0.1 mg/dL (0.3-1.0); Globulin 2.6 g/dL (2.4-3.5); Total Protein 4.5 g/dL (6.4-8.9)
[2019-03-13 08:21] LABS: Basophils # 0.1 K/mcL (0.0-0.2); Basophils % 0.4 %; Eosinophils # 0.2 K/mcL (0.0-0.6); Eosinophils % 1.2 %; Immature Granulocytes % 0.6 % (0-4); Lymphocytes # 2.2 K/mcL (0.6-4.6); Lymphocytes % 12.2 %; Monocytes # 1.5 K/mcL (0.0-1.3); Monocytes % 8.4 %; Neutrophils # 14.1 K/mcL (1.6-8.9); Segmented Neutrophils % 77.2 %
[2019-03-13] MEDS: Furosemide 40 MG/4 ML VIAL IVP SCH ×2 (09:22→20:36)
[2019-03-13] MEDS: cefTRIAXone 1,000 MG in Water for inj. (sterile) 10 ML IVP SCH (09:22)
[2019-03-13] MEDS: Spironolactone 25 MG TABLET PO SCH (09:23)
[2019-03-13] MEDS: Insulin LISPRO 300 UNITS/3 ML VIAL SQ SCH ×6 (09:23→18:19)
[2019-03-13 10:14] LABS: Complement C3 142 mg/dL (87-200)
[2019-03-13 13:13] LABS: Adenovirus F 40/41 PCR Not detected (Not detect); Astrovirus PCR Not detected (Not detect); C.difficile Toxin A/B Gene PCR Not detected (Not detect); Campylobacter by PCR Not detected (Not detect); Cryptosporidium by PCR Not detected (Not detect); Cyclospora cayetanensis PCR Not detected (Not detect); E. coli O157 by PCR Not detected (Not detect); Entamoeba histolytica PCR Not detected (Not detect); Enteroaggregative E.coli(EAEC) Not detected (Not detect); Enteropathogenic E.coli(EPEC) Not detected (Not detect); Enterotoxigenic E.coli (ETEC) Not detected (Not detect); Giardia lamblia PCR Not detected (Not detect); Norovirus GI/GII PCR Not detected (Not detect); Plesiomonas shigelloides PCR Not detected (Not detect); Rotavirus A PCR Not detected (Not detect); Salmonella PCR Not detected (Not detect); Sapovirus PCR Not detected (Not detect); Shig/EnteroinvasiveE coli EIEC Not detected (Not detect); Shigalike tox-prod E coli STEC Not detected (Not detect); Vibrio PCR Not detected (Not detect); Vibrio cholerae PCR Not detected (Not detect); Yersinia enterocolitica PCR Not detected (Not detect)
[2019-03-13] MEDS: Albumin 25% 25gram/100mL 25 GM/100 ML IV.SOLN IVPB SCH (20:36)
[2019-03-13] MEDS: Insulin DETEMIR 100 UNIT/ML X5UNITS SQ SCH (20:39)
[2019-03-14] MEDS: *HR* Heparin 5,000 UNIT/ML VIAL SQ SCH ×3 (05:34→20:29)
[2019-03-14] MEDS: Albumin 25% 25gram/100mL 25 GM/100 ML IV.SOLN IVPB SCH ×2 (05:34→20:29)
[2019-03-14] MEDS: Levothyroxine 25 MCG TABLET PO SCH (05:35)
[2019-03-14 06:38] LABS: Hematocrit 24.5 % (35.3-44.9); Hemoglobin 8.1 g/dL (11.5-15.4); Mean Corpuscular HGB Conc 33.1 g/dL (31.6-35.5); Mean Corpuscular Hemoglobin 30.6 pg (28.0-33.3); Mean Corpuscular Volume 92.5 fL (83.0-100.0); Mean Platelet Volume 9.3 fL (9.4-12.4); Platelet Count 408 K/mcL (140-400); Red Blood Count 2.65 M/mcL (3.82-4.97); Red Cell Distribution Width 12.3 % (11.5-14.5); White Blood Count 16.9 K/mcL (4.3-11.1)
[2019-03-14 07:06] LABS: Alanine Aminotransferase 10 Units/L (7-52); Albumin 2.2 g/dL (3.5-5.7); Albumin/Globulin Ratio 0.9 (1.1-2.2); Alkaline Phosphatase 110 Units/L (34-104); Aspartate Amino Transferase 17 Units/L (13-39); BUN/Creatinine Ratio 23 (6-26); Bilirubin,Total 0.2 mg/dL (0.3-1.0); Blood Urea Nitrogen 27 mg/dL (6-20); Calcium 8.7 mg/dL (8.6-10.3); Carbon Dioxide 31 mEq/L (23-29); Chloride 95 mEq/L (98-107); Globulin 2.5 g/dL (2.4-3.5); Glucose 96 mg/dL (70-105); Osmolality,Calculated 285 (280-300); Potassium 3.9 mEq/L (3.5-5.1); Sodium 135 mEq/L (136-145); Total Protein 4.7 g/dL (6.4-8.9); eGFR For African Americans > 60 (> 60); eGFR For Non-African Americans 50 (> 60)
[2019-03-14] MEDS: Insulin LISPRO 300 UNITS/3 ML VIAL SQ SCH ×6 (08:01→18:15)
[2019-03-14] MEDS: Spironolactone 25 MG TABLET PO SCH (08:01)
[2019-03-14] MEDS: Furosemide 40 MG/4 ML VIAL IVP SCH ×2 (08:01→20:29)
[2019-03-14 14:54] LABS: Total Volume 24 Hour,Urine 1.93 Liters (0.60-1.60)
[2019-03-14 15:21] LABS: Protein/Creatinine Ratio,Urine 5.64 mg/mg (0.00-0.20)
[2019-03-14] MEDS: Insulin DETEMIR 100 UNIT/ML X5UNITS SQ SCH (20:39)
[2019-03-15 05:11] LABS: Hepatitis B Surface Antigen Nonreactive (Nonreactive)
[2019-03-15 05:26] LABS: Hematocrit 23.5 % (35.3-44.9); Hemoglobin 7.4 g/dL (11.5-15.4); Mean Corpuscular HGB Conc 31.5 g/dL (31.6-35.5); Mean Corpuscular Volume 95.1 fL (83.0-100.0); Mean Platelet Volume 9.7 fL (9.4-12.4); Platelet Count 420 K/mcL (140-400); Red Blood Count 2.47 M/mcL (3.82-4.97); White Blood Count 14.3 K/mcL (4.3-11.1)
[2019-03-15] MEDS: Albumin 25% 25gram/100mL 25 GM/100 ML IV.SOLN IVPB SCH ×2 (05:31→16:57)
[2019-03-15] MEDS: *HR* Heparin 5,000 UNIT/ML VIAL SQ SCH ×3 (05:31→20:01)
[2019-03-15] MEDS: Levothyroxine 25 MCG TABLET PO SCH (05:32)
[2019-03-15 05:40] LABS: Albumin 2.2 g/dL (3.5-5.7); Albumin/Globulin Ratio 0.8 (1.1-2.2); Bilirubin,Total 0.2 mg/dL (0.3-1.0); Calcium 8.5 mg/dL (8.6-10.3); Globulin 2.8 g/dL (2.4-3.5); Potassium 3.9 mEq/L (3.5-5.1)
[2019-03-15 05:50] LABS: Hepatitis A Antibody IgM Nonreactive (Nonreactive)
[2019-03-15 05:54] LABS: Hepatitis B Core IgM Nonreactive (Nonreactive)
[2019-03-15 06:05] LABS: Hepatitis C Virus Antibody Nonreactive (Nonreactive)
[2019-03-15 09:18] LABS: Urine Collection Volume RANDOM mL
[2019-03-15] MEDS: Furosemide 40 MG/4 ML VIAL IVP SCH ×2 (10:44→20:01)
[2019-03-15] MEDS: Spironolactone 25 MG TABLET PO SCH (10:44)
[2019-03-15] MEDS: Insulin LISPRO 300 UNITS/3 ML VIAL SQ SCH ×6 (10:45→16:58)
[2019-03-15 11:11] LABS: Serine Protease-3 Antibody 1 AU/mL (0-19)
[2019-03-15] MEDS: Insulin DETEMIR 100 UNIT/ML X5UNITS SQ SCH (20:01)
[2019-03-16] MEDS ORDERED: Acetaminophen IV 1,000 MG/100 ML INFUS..BTL IVPB ONE (02:04)
[2019-03-16] MEDS: *HR* Heparin 5,000 UNIT/ML VIAL SQ SCH ×3 (06:20→20:18)
[2019-03-16] MEDS: Levothyroxine 25 MCG TABLET PO SCH (06:20)
[2019-03-16] MEDS: Albumin 25% 25gram/100mL 25 GM/100 ML IV.SOLN IVPB SCH (06:21)
[2019-03-16 06:58] LABS: Hematocrit 21.7 % (35.3-44.9); Hemoglobin 7.1 g/dL (11.5-15.4); Mean Corpuscular HGB Conc 32.7 g/dL (31.6-35.5); Mean Corpuscular Volume 91.6 fL (83.0-100.0); Mean Platelet Volume 9.5 fL (9.4-12.4); Platelet Count 437 K/mcL (140-400); Red Blood Count 2.37 M/mcL (3.82-4.97); Red Cell Distribution Width 12.2 % (11.5-14.5)
[2019-03-16 07:18] LABS: Calcium 8.7 mg/dL (8.6-10.3); Potassium 3.8 mEq/L (3.5-5.1)
[2019-03-16] MEDS: Insulin LISPRO 300 UNITS/3 ML VIAL SQ SCH ×4 (07:20→12:40)
[2019-03-16] MEDS: Spironolactone 25 MG TABLET PO SCH (07:41)
[2019-03-16] MEDS: Furosemide 40 MG/4 ML VIAL IVP SCH ×2 (07:41→20:17)
[2019-03-16 07:54] LABS: ANA IgG by ELISA DETECTED (None Detected)
[2019-03-16 13:53] LABS: GBM IgG Multiplex Bead Assay 0 AU/mL (0-19); Glomerular Basement Memb IgG NEGATIVE (Negative)
[2019-03-16] MEDS: Insulin DETEMIR 100 UNIT/ML X5UNITS SQ SCH (21:13)
[2019-03-17 02:40] LABS: Alpha 2 Globulin (PEP) 1.12 g/dL (0.48-1.05); Beta Globulin (PEP) 0.81 g/dL (0.48-1.10)
[2019-03-17 02:50] LABS: Hematocrit 21.2 % (35.3-44.9); Hemoglobin 6.9 g/dL (11.5-15.4); Mean Corpuscular HGB Conc 32.5 g/dL (31.6-35.5); Mean Corpuscular Hemoglobin 30.1 pg (28.0-33.3); Mean Corpuscular Volume 92.6 fL (83.0-100.0); Mean Platelet Volume 9.4 fL (9.4-12.4); Platelet Count 433 K/mcL (140-400); Red Blood Count 2.29 M/mcL (3.82-4.97); Red Cell Distribution Width 12.2 % (11.5-14.5); White Blood Count 13.7 K/mcL (4.3-11.1)
[2019-03-17] MEDS: Insulin LISPRO 300 UNITS/3 ML VIAL SQ SCH ×8 (02:50→18:20)
[2019-03-17 03:11] LABS: % Iron Saturation 6 % (15-50); Iron 10 mcg/dL (50-170); Transferrin 120 mg/dL (203-362)
[2019-03-17 03:12] LABS: Calcium 8.6 mg/dL (8.6-10.3); Potassium 3.7 mEq/L (3.5-5.1)
[2019-03-17] MEDS: Levothyroxine 25 MCG TABLET PO SCH (05:33)
[2019-03-17] MEDS: *HR* Heparin 5,000 UNIT/ML VIAL SQ SCH ×3 (05:33→21:10)
[2019-03-17 08:08] LABS: ANA HEp-2 IgG IFA <1:80 (<1:80)
[2019-03-17] MEDS: Furosemide 40 MG/4 ML VIAL IVP SCH ×2 (08:45→21:19)
[2019-03-17] MEDS: Spironolactone 25 MG TABLET PO SCH (08:49)
[2019-03-17 09:52] LABS: IFE Reflexed NOT DONE
[2019-03-17] MEDS ORDERED: 0.9 % Sodium Chloride 250 ML ONE (14:34)
[2019-03-17] MEDS ORDERED: Acetaminophen 325 MG TABLET PO PRN (14:42)
[2019-03-17] MEDS ORDERED: Vicks Vaporub Oint 50 GM PACKAGE TP PRN (15:11)
[2019-03-17] MEDS: *HR* HYDROcodone/Acet 5/325 mg TABLET PO PRN (18:20)
[2019-03-17 19:40] LABS: Hemoglobin 8.2 g/dL (11.5-15.4)
[2019-03-17] MEDS: Insulin DETEMIR 100 UNIT/ML X5UNITS SQ SCH (21:18)
[2019-03-18 00:32] LABS: ABG Base Excess 9 mEq/L (-2 to 3); ABG HCO3 34 mEq/L (21-27); ABG Oxygen Saturation 92 % (95-98); ABG PCO2 53 mmHg (35-45); ABG PH 7.42 pH Units (7.32-7.45); ABG PO2 65 mmHg (85-104); ABG TCO2 36 mEq/L (20-26)
[2019-03-18 01:18] LABS: Bilirubin,Urine Negative (Negative); Blood,Urine Moderate (Negative); Clarity,Urine Turbid (Clear); Color,Urine Yellow (Yellow); Glucose,Urine (UA) 100 mg/dL (Normal); Ketones,Urine Negative (Negative); Leukocyte Esterase,Urine Small (Negative); Nitrite,Urine Negative (Negative); PH,Urine 5.5 pH Units (5.0-8.0); Protein,Urine >=300 mg/dL (Neg-Trace); Urobilinogen,Urine Normal (Normal)
[2019-03-18 01:22] LABS: Bacteria,Urine None Seen per hpf (None-Few); Squamous Epithelial Cell,Urine Many per lpf (None-Few); WBC,Urine TNTC per hpf (0-3)
[2019-03-18 01:53] LABS: Granular Casts,Urine Few per lpf (None Seen); Hyaline Casts,Urine Moderate per lpf (None-Few); RBC,Urine 50-100 per hpf (0-3); Yeast,Urine Many per hpf (None Seen)
[2019-03-18] MEDS ORDERED: Saline Nasal Spray 44 ML BOTTLE NS PRN (02:56)
[2019-03-18] MEDS ORDERED: cefTRIAXone 1,000 MG in 0.9 % Sodium Chloride Mini Bag 100 ML IVPB SCH (04:00)
[2019-03-18 04:41] LABS: Hematocrit 24.6 % (35.3-44.9); Mean Corpuscular HGB Conc 32.5 g/dL (31.6-35.5); Mean Corpuscular Hemoglobin 30.2 pg (28.0-33.3); Mean Corpuscular Volume 92.8 fL (83.0-100.0); Mean Platelet Volume 9.2 fL (9.4-12.4); Platelet Count 482 K/mcL (140-400); Red Blood Count 2.65 M/mcL (3.82-4.97); Red Cell Distribution Width 12.4 % (11.5-14.5); White Blood Count 15.7 K/mcL (4.3-11.1)
[2019-03-18 04:53] LABS: Calcium 8.8 mg/dL (8.6-10.3); Potassium 3.6 mEq/L (3.5-5.1)
[2019-03-18] MEDS: Levothyroxine 25 MCG TABLET PO SCH (05:36)
[2019-03-18] MEDS: Albumin 25% 25gram/100mL 25 GM/100 ML IV.SOLN IVPB SCH ×3 (06:04→17:34)
[2019-03-18 07:44] LABS: Adenovirus Not Detected (Not Detect); Bordetella Pertussis Not Detected (Not Detect); Chlamydophila pneumoniae Not Detected (Not Detect); Coronavirus 229E Not Detected (Not Detect); Coronavirus HKU1 Not Detected (Not Detect); Coronavirus NL63 Not Detected (Not Detect); Coronavirus OC43 Not Detected (Not Detect); Human Metapneumovirus Not Detected (Not Detect); Human Rhinovirus/Enterovirus Not Detected (Not Detect); Influenza A Subtype 2009 H1 Not Detected (Not Detect); Influenza B Not Detected (Not Detect); Mycoplasma pneumoniae Not Detected (Not Detect); Parainfluenza Virus 1 Not Detected (Not Detect); Parainfluenza Virus 2 Not Detected (Not Detect); Parainfluenza Virus 3 Not Detected (Not Detect); Parainfluenza Virus 4 Not Detected (Not Detect); Respiratory Syncytial Virus Not Detected (Not Detect)
[2019-03-18] MEDS: *HR* HYDROcodone/Acet 5/325 mg TABLET PO PRN (07:44)
[2019-03-18] MEDS: *HR* Heparin 5,000 UNIT/ML VIAL SQ SCH ×2 (07:47→18:24)
[2019-03-18] MEDS: Insulin LISPRO 300 UNITS/3 ML VIAL SQ SCH ×6 (09:40→17:23)
[2019-03-18] MEDS: Furosemide 40 MG/4 ML VIAL IVP SCH ×2 (09:46→21:16)
[2019-03-18] MEDS: Spironolactone 25 MG TABLET PO SCH (09:47)
[2019-03-18] MEDS: Piperacillin/Tazobactam 3.375 GM in 0.9 % Sodium Chloride Mini Bag 100 ML IVPB SCH ×2 (09:52→17:32)
[2019-03-18 13:32] LABS: INR 1.1; Prothrombin Time 12.2 Seconds (9.4-12.1)
[2019-03-18 17:52] LABS: Hematocrit 25.4 % (35.3-44.9); Hemoglobin 8.3 g/dL (11.5-15.4)
[2019-03-18 20:14] LABS: Albumin 2.5 g/dL (3.5-5.7); Albumin/Globulin Ratio 0.9 (1.1-2.2); Globulin 2.7 g/dL (2.4-3.5); Total Protein 5.2 g/dL (6.4-8.9)
[2019-03-18] MEDS ORDERED: Ipratropium/Albuterol Neb 3 ML IH PRN (22:21)
[2019-03-18] MEDS: Insulin DETEMIR 100 UNIT/ML X5UNITS SQ SCH (22:57)
[2019-03-18 23:34] LABS: LDH,Pleural Fluid 48 Units/L (No Ref Range); Total Protein,Pleural Fluid < 3.0 g/dL
[2019-03-19] MEDS: Piperacillin/Tazobactam 3.375 GM in 0.9 % Sodium Chloride Mini Bag 100 ML IVPB SCH ×3 (00:32→17:41)
[2019-03-19 02:41] LABS: RBC,Pleural Fluid 0.002 M/mcL
[2019-03-19 03:39] LABS: Appearance of Pleural Fl Clear (Clear)
[2019-03-19 03:55] LABS: Basophils,Pleural Fluid 0 %; Eosinophils,Pleural Fluid 0 %
[2019-03-19 05:26] LABS: Basophils # 0.1 K/mcL (0.0-0.2); Basophils % 0.5 %; Eosinophils # 0.3 K/mcL (0.0-0.6); Eosinophils % 1.6 %; Hematocrit 25.3 % (35.3-44.9); Hemoglobin 7.9 g/dL (11.5-15.4); Immature Granulocytes % 0.8 % (0-4); Lymphocytes # 1.7 K/mcL (0.6-4.6); Lymphocytes % 10.8 %; Mean Corpuscular HGB Conc 31.2 g/dL (31.6-35.5); Mean Corpuscular Hemoglobin 30.2 pg (28.0-33.3); Mean Corpuscular Volume 96.6 fL (83.0-100.0); Mean Platelet Volume 9.3 fL (9.4-12.4); Monocytes # 1.1 K/mcL (0.0-1.3); Monocytes % 6.8 %; Neutrophils # 12.3 K/mcL (1.6-8.9); Platelet Count 474 K/mcL (140-400); Red Blood Count 2.62 M/mcL (3.82-4.97); Red Cell Distribution Width 12.5 % (11.5-14.5); Segmented Neutrophils % 79.5 %; White Blood Count 15.5 K/mcL (4.3-11.1)
[2019-03-19 05:50] LABS: Calcium 9.1 mg/dL (8.6-10.3); Magnesium 1.7 mg/dL (1.6-2.6); Phosphorous 3.5 mg/dL (2.7-4.5); Potassium 3.7 mEq/L (3.5-5.1)
[2019-03-19] MEDS: Albumin 25% 25gram/100mL 25 GM/100 ML IV.SOLN IVPB SCH ×2 (06:16→17:41)
[2019-03-19] MEDS: Levothyroxine 25 MCG TABLET PO SCH (06:16)
[2019-03-19] MEDS: *HR* Heparin 5,000 UNIT/ML VIAL SQ SCH ×2 (06:18→17:43)
[2019-03-19] MEDS: Spironolactone 25 MG TABLET PO SCH (08:27)
[2019-03-19] MEDS: Insulin LISPRO 300 UNITS/3 ML VIAL SQ SCH ×6 (08:28→17:40)
[2019-03-19] MEDS: Furosemide 40 MG/4 ML VIAL IVP SCH ×2 (15:12→21:15)
[2019-03-19] MEDS: *HR* HYDROcodone/Acet 5/325 mg TABLET PO PRN (15:17)
[2019-03-19] MEDS: Insulin DETEMIR 100 UNIT/ML X5UNITS SQ SCH (21:14)
[2019-03-20] MEDS: Piperacillin/Tazobactam 3.375 GM in 0.9 % Sodium Chloride Mini Bag 100 ML IVPB SCH ×2 (01:28→08:24)
[2019-03-20] MEDS: Levothyroxine 25 MCG TABLET PO SCH (06:37)
[2019-03-20] MEDS: Albumin 25% 25gram/100mL 25 GM/100 ML IV.SOLN IVPB SCH (06:37)
[2019-03-20] MEDS: Insulin LISPRO 300 UNITS/3 ML VIAL SQ SCH ×4 (07:55→18:20)
[2019-03-20 08:15] LABS: Hematocrit 23.7 % (35.3-44.9); Hemoglobin 7.4 g/dL (11.5-15.4); Mean Corpuscular HGB Conc 31.2 g/dL (31.6-35.5); Mean Corpuscular Hemoglobin 30.6 pg (28.0-33.3); Mean Corpuscular Volume 97.9 fL (83.0-100.0); Mean Platelet Volume 9.2 fL (9.4-12.4); Platelet Count 488 K/mcL (140-400); Red Blood Count 2.42 M/mcL (3.82-4.97); Red Cell Distribution Width 12.4 % (11.5-14.5); White Blood Count 13.6 K/mcL (4.3-11.1)
[2019-03-20 08:21] LABS: Calcium 9.3 mg/dL (8.6-10.3); Magnesium 1.8 mg/dL (1.6-2.6); Phosphorous 3.7 mg/dL (2.7-4.5); Potassium 3.4 mEq/L (3.5-5.1)
[2019-03-20] MEDS: Furosemide 40 MG/4 ML VIAL IVP SCH ×2 (08:24→22:59)
[2019-03-20] MEDS: Spironolactone 25 MG TABLET PO SCH (08:24)
[2019-03-20] MEDS: *HR* HYDROcodone/Acet 5/325 mg TABLET PO PRN (08:33)
[2019-03-20] MEDS ORDERED: 0.9 % Sodium Chloride 250 ML ONE (11:15)
[2019-03-20 17:21] LABS: Hematocrit 28.4 % (35.3-44.9)
[2019-03-20 17:23] LABS: Hemoglobin 9.4 g/dL (11.5-15.4)
[2019-03-20] MEDS ORDERED: Insulin DETEMIR 100 UNIT/ML X5UNITS SQ SCH (21:00)
[2019-03-21 01:35] LABS: Basophils # 0.1 K/mcL (0.0-0.2); Basophils % 0.4 %; Eosinophils # 0.4 K/mcL (0.0-0.6); Hematocrit 26.1 % (35.3-44.9); Hemoglobin 8.2 g/dL (11.5-15.4); Immature Granulocytes % 0.7 % (0-4); Lymphocytes # 1.8 K/mcL (0.6-4.6); Lymphocytes % 12.3 %; Mean Corpuscular HGB Conc 31.4 g/dL (31.6-35.5); Mean Corpuscular Hemoglobin 30.3 pg (28.0-33.3); Mean Corpuscular Volume 96.3 fL (83.0-100.0); Monocytes # 1.2 K/mcL (0.0-1.3); Monocytes % 8.1 %; Neutrophils # 11.1 K/mcL (1.6-8.9); Platelet Count 471 K/mcL (140-400); Red Blood Count 2.71 M/mcL (3.82-4.97); Red Cell Distribution Width 12.9 % (11.5-14.5); Segmented Neutrophils % 75.5 %; White Blood Count 14.7 K/mcL (4.3-11.1)
[2019-03-21 01:58] LABS: Calcium 8.8 mg/dL (8.6-10.3); Magnesium 1.7 mg/dL (1.6-2.6); Phosphorous 3.8 mg/dL (2.7-4.5); Potassium 3.7 mEq/L (3.5-5.1)
[2019-03-21] MEDS: Levothyroxine 25 MCG TABLET PO SCH (06:32)
[2019-03-21] MEDS: Insulin LISPRO 300 UNITS/3 ML VIAL SQ SCH ×3 (08:27→16:04)
[2019-03-21] MEDS: Furosemide 40 MG/4 ML VIAL IVP SCH ×2 (08:27→20:13)
[2019-03-21] MEDS: levoFLOXacin 750 MG TABLET PO SCH (08:27)
[2019-03-21] MEDS: Spironolactone 25 MG TABLET PO SCH (08:27)
[2019-03-21 17:45] LABS: Glucose,Pleural Fluid 185 mg/dL (No Ref Range); LDH,Pleural Fluid 57 Units/L (No Ref Range); Total Protein,Pleural Fluid < 3.0 g/dL
[2019-03-21 18:23] LABS: Appearance of Pleural Fl Clear (Clear)
[2019-03-21 18:29] LABS: RBC,Pleural Fluid < 0.002 M/mcL
[2019-03-21] MEDS: *HR* HYDROcodone/Acet 5/325 mg TABLET PO PRN (20:13)
[2019-03-21] MEDS ORDERED: Insulin DETEMIR 100 UNIT/ML X5UNITS SQ SCH (21:00)
[2019-03-21 22:10] LABS: Basophils,Pleural Fluid 0 %
[2019-03-22 03:54] LABS: Basophils # 0.1 K/mcL (0.0-0.2); Basophils % 0.5 %; Eosinophils # 0.6 K/mcL (0.0-0.6); Eosinophils % 3.6 %; Hematocrit 26.9 % (35.3-44.9); Hemoglobin 8.8 g/dL (11.5-15.4); Lymphocytes % 12.9 %; Mean Corpuscular HGB Conc 32.7 g/dL (31.6-35.5); Mean Corpuscular Hemoglobin 30.2 pg (28.0-33.3); Mean Corpuscular Volume 92.4 fL (83.0-100.0); Monocytes # 1.1 K/mcL (0.0-1.3); Monocytes % 7.2 %; Neutrophils # 11.5 K/mcL (1.6-8.9); Platelet Count 518 K/mcL (140-400); Red Blood Count 2.91 M/mcL (3.82-4.97); Red Cell Distribution Width 12.7 % (11.5-14.5); Segmented Neutrophils % 74.8 %; White Blood Count 15.4 K/mcL (4.3-11.1)
[2019-03-22 04:11] LABS: Calcium 8.6 mg/dL (8.6-10.3); Magnesium 1.7 mg/dL (1.6-2.6); Phosphorous 3.4 mg/dL (2.7-4.5); Potassium 3.5 mEq/L (3.5-5.1)
[2019-03-22] MEDS: Levothyroxine 25 MCG TABLET PO SCH (05:14)
[2019-03-22 07:44] VITALS: BP 163/89
[2019-03-22] MEDS: levoFLOXacin 750 MG TABLET PO SCH (07:53)
[2019-03-22] MEDS: Furosemide 40 MG/4 ML VIAL IVP SCH (07:53)
[2019-03-22] MEDS: Spironolactone 25 MG TABLET PO SCH (07:53)
[2019-03-22] MEDS: Insulin LISPRO 300 UNITS/3 ML VIAL SQ SCH ×2 (07:54→11:34)
[2019-03-23 17:56] LABS: Fluid Source for Albumin PLEURAL FLUID
== END 2019-03-22 17:00 | disposition home health service (06) | DRG 871 ==
LOC: EMEROOARM 23:11 → 2NNU 23:11 → SUATTDRO 03-11 03:05 → 2NNU 03-11 04:14 → SUATTDRO 03-12 14:22 → 2NENU 03-16 19:09
PROVIDERS: ADMIT Internal Medicine; ATTEND Internal Medicine

== ENCOUNTER 2019-03-26 15:57 | Inpatient (IN) ==
[2019-03-26 16:45] LABS: Basophils # 0.1 K/mcL (0.0-0.2); Basophils % 0.6 %; Eosinophils # 0.5 K/mcL (0.0-0.6); Eosinophils % 3.2 %; Hematocrit 30.1 % (35.3-44.9); Immature Granulocytes % 1.2 % (0-4); Lymphocytes # 1.2 K/mcL (0.6-4.6); Lymphocytes % 8.5 %; Mean Corpuscular HGB Conc 33.2 g/dL (31.6-35.5); Mean Corpuscular Hemoglobin 30.1 pg (28.0-33.3); Mean Corpuscular Volume 90.7 fL (83.0-100.0); Mean Platelet Volume 9.1 fL (9.4-12.4); Monocytes # 0.8 K/mcL (0.0-1.3); Monocytes % 5.9 %; Neutrophils # 11.5 K/mcL (1.6-8.9); Platelet Count 641 K/mcL (140-400); Red Blood Count 3.32 M/mcL (3.82-4.97); Red Cell Distribution Width 12.5 % (11.5-14.5); Segmented Neutrophils % 80.6 %; White Blood Count 14.3 K/mcL (4.3-11.1)
[2019-03-26 17:05] LABS: Calcium 9.2 mg/dL (8.6-10.3); Potassium 3.3 mEq/L (3.5-5.1)
[2019-03-26] MEDS ORDERED: Aspirin 81 MG TAB.CHEW PO STA (17:13)
[2019-03-26] MEDS ORDERED: Naloxone 0.4 MG/ML INJ IVP PRN (17:40)
[2019-03-26] MEDS ORDERED: D5% in Water 1,000 ML IVC PRN (17:43)
[2019-03-26] MEDS ORDERED: Dextrose Gel 15 GM/37.5 ML TUBE PO PRN ×2 (17:43)
[2019-03-26 18:31] LABS: Estimated Average Glucose 303 mg/dl
[2019-03-26 18:49] LABS: Albumin 2.7 g/dL (3.5-5.7); Albumin/Globulin Ratio 0.9 (1.1-2.2); Bilirubin,Indirect 0.2 mg/dL (0.0-1.0); Bilirubin,Total 0.2 mg/dL (0.3-1.0); Globulin 2.9 g/dL (2.4-3.5); Total Protein 5.6 g/dL (6.4-8.9)
[2019-03-26] MEDS: Cefepime HCl 1,000 MG in Water for inj. (sterile) 10 ML IVP SCH (20:14)
[2019-03-26] MEDS: Furosemide 40 MG/4 ML VIAL IVP SCH (23:14)
[2019-03-26] MEDS: Insulin DETEMIR 100 UNIT/ML X5UNITS SQ SCH (23:15)
[2019-03-26] MEDS: Potassium Chloride Elixir 20 MEQ/15 ML UDC PO SCH (23:15)
[2019-03-27] MEDS: Cefepime HCl 1,000 MG in Water for inj. (sterile) 10 ML IVP SCH ×3 (00:43→16:03)
[2019-03-27 02:42] LABS: Adenovirus Not Detected (Not Detect); Bordetella Pertussis Not Detected (Not Detect); Chlamydophila pneumoniae Not Detected (Not Detect); Coronavirus 229E Not Detected (Not Detect); Coronavirus HKU1 Not Detected (Not Detect); Coronavirus NL63 Not Detected (Not Detect); Coronavirus OC43 Not Detected (Not Detect); Human Metapneumovirus Not Detected (Not Detect); Human Rhinovirus/Enterovirus Not Detected (Not Detect); Influenza A Subtype 2009 H1 Not Detected (Not Detect); Influenza B Not Detected (Not Detect); Mycoplasma pneumoniae Not Detected (Not Detect); Parainfluenza Virus 1 Not Detected (Not Detect); Parainfluenza Virus 2 Not Detected (Not Detect); Parainfluenza Virus 3 Not Detected (Not Detect); Parainfluenza Virus 4 Not Detected (Not Detect); Respiratory Syncytial Virus Not Detected (Not Detect)
[2019-03-27] MEDS ORDERED: Potassium Chloride Elixir 20 MEQ/15 ML UDC PO SCH (03:00)
[2019-03-27 05:39] LABS: Basophils # 0.1 K/mcL (0.0-0.2); Basophils % 0.7 %; Eosinophils # 0.7 K/mcL (0.0-0.6); Eosinophils % 5.3 %; Hematocrit 29.3 % (35.3-44.9); Hemoglobin 9.5 g/dL (11.5-15.4); Lymphocytes # 1.4 K/mcL (0.6-4.6); Lymphocytes % 11.5 %; Mean Corpuscular HGB Conc 32.4 g/dL (31.6-35.5); Mean Corpuscular Hemoglobin 29.7 pg (28.0-33.3); Mean Corpuscular Volume 91.6 fL (83.0-100.0); Mean Platelet Volume 9.2 fL (9.4-12.4); Monocytes # 1.1 K/mcL (0.0-1.3); Monocytes % 8.5 %; Neutrophils # 9.1 K/mcL (1.6-8.9); Platelet Count 619 K/mcL (140-400); Red Cell Distribution Width 12.5 % (11.5-14.5); White Blood Count 12.4 K/mcL (4.3-11.1)
[2019-03-27 05:55] LABS: Calcium 9.1 mg/dL (8.6-10.3); Magnesium 1.8 mg/dL (1.6-2.6); Phosphorous 3.4 mg/dL (2.7-4.5)
[2019-03-27] MEDS: Potassium Chloride Elixir 20 MEQ/15 ML UDC PO SCH (06:16)
[2019-03-27] MEDS: Levothyroxine 25 MCG TABLET PO SCH (06:17)
[2019-03-27] MEDS ORDERED: Azithromycin 500 MG in 0.9 % Sodium Chloride 250 ML IVPB SCH (08:00)
[2019-03-27] MEDS: Furosemide 40 MG/4 ML VIAL IVP SCH ×2 (08:28→16:51)
[2019-03-27] MEDS: Insulin LISPRO 300 UNITS/3 ML VIAL SQ SCH ×3 (08:29→16:50)
[2019-03-27] MEDS: Spironolactone 25 MG TABLET PO SCH (08:29)
[2019-03-27] MEDS ORDERED: Aminoglycoside Consult 1 EACH MC ONE (08:42)
[2019-03-27] MEDS: Albumin 25% 25gram/100mL 25 GM/100 ML IV.SOLN IVC SCH ×4 (13:28→19:55)
[2019-03-27] MEDS: metOLazone 5 MG TABLET PO SCH (13:28)
[2019-03-27 14:02] LABS: RBC,Pleural Fluid < 0.002 M/mcL
[2019-03-27 14:16] LABS: Glucose,Pleural Fluid 239 mg/dL (No Ref Range); LDH,Pleural Fluid 58 Units/L (No Ref Range); Total Protein,Pleural Fluid < 3.0 g/dL
[2019-03-27 14:48] LABS: Appearance of Pleural Fl Clear (Clear); Basophils,Pleural Fluid 0 %; Eosinophils,Pleural Fluid 0 %
[2019-03-27] MEDS: Insulin DETEMIR 100 UNIT/ML X5UNITS SQ SCH (20:27)
[2019-03-28] MEDS: Cefepime HCl 1,000 MG in Water for inj. (sterile) 10 ML IVP SCH (00:38)
[2019-03-28] MEDS: Levothyroxine 25 MCG TABLET PO SCH (05:22)
[2019-03-28] MEDS ORDERED: *HR* OxyCODONE Immed Rel 5 MG TABLET PO ONE (05:29)
[2019-03-28 06:05] LABS: Basophils # 0.1 K/mcL (0.0-0.2); Basophils % 0.6 %; Eosinophils # 0.4 K/mcL (0.0-0.6); Eosinophils % 3.5 %; Hematocrit 27.3 % (35.3-44.9); Hemoglobin 8.9 g/dL (11.5-15.4); Immature Granulocytes % 0.7 % (0-4); Lymphocytes # 1.7 K/mcL (0.6-4.6); Lymphocytes % 14.1 %; Mean Corpuscular HGB Conc 32.6 g/dL (31.6-35.5); Mean Corpuscular Volume 91.9 fL (83.0-100.0); Mean Platelet Volume 9.2 fL (9.4-12.4); Monocytes # 1.1 K/mcL (0.0-1.3); Monocytes % 8.9 %; Neutrophils # 8.6 K/mcL (1.6-8.9); Platelet Count 554 K/mcL (140-400); Red Blood Count 2.97 M/mcL (3.82-4.97); Red Cell Distribution Width 12.7 % (11.5-14.5); Segmented Neutrophils % 72.2 %; White Blood Count 11.9 K/mcL (4.3-11.1)
[2019-03-28 06:27] LABS: Calcium 9.7 mg/dL (8.6-10.3); Magnesium 1.8 mg/dL (1.6-2.6); Phosphorous 3.2 mg/dL (2.7-4.5); Potassium 3.5 mEq/L (3.5-5.1)
[2019-03-28] MEDS: Insulin LISPRO 300 UNITS/3 ML VIAL SQ SCH ×3 (09:25→16:54)
[2019-03-28] MEDS: Cefepime HCl 1,000 MG in 0.9 % Sodium Chloride Mini Bag 100 ML IVPB SCH ×3 (09:30→23:57)
[2019-03-28] MEDS: Azithromycin 500 MG in 0.9 % Sodium Chloride 250 ML IVPB SCH (09:30)
[2019-03-28] MEDS: Furosemide 40 MG/4 ML VIAL IVP SCH ×2 (09:31→16:58)
[2019-03-28] MEDS: Spironolactone 25 MG TABLET PO SCH (09:39)
[2019-03-28] MEDS: metOLazone 5 MG TABLET PO SCH ×2 (09:39→10:00)
[2019-03-28] MEDS: Acetaminophen 325 MG TABLET PO PRN (12:24)
[2019-03-28] MEDS: Insulin DETEMIR 100 UNIT/ML X5UNITS SQ SCH (21:05)
[2019-03-29 01:07] LABS: Bilirubin,Urine Negative (Negative); Blood,Urine Moderate (Negative); Clarity,Urine Slightly Cloudy (Clear); Color,Urine Yellow (Yellow); Glucose,Urine (UA) Normal (Normal); Ketones,Urine Negative (Negative); Leukocyte Esterase,Urine Small (Negative); Nitrite,Urine Negative (Negative); Protein,Urine >=300 mg/dL (Neg-Trace); Urobilinogen,Urine Normal (Normal)
[2019-03-29 01:08] LABS: Bacteria,Urine None Seen per hpf (None-Few); Hyaline Casts,Urine None Seen per lpf (None-Few); Squamous Epithelial Cell,Urine Moderate per lpf (None-Few); WBC,Urine TNTC per hpf (0-3)
[2019-03-29 01:40] LABS: Yeast,Urine Moderate per hpf (None Seen)
[2019-03-29 06:08] LABS: Basophils # 0.1 K/mcL (0.0-0.2); Basophils % 0.5 %; Eosinophils # 0.4 K/mcL (0.0-0.6); Eosinophils % 2.8 %; Hematocrit 27.2 % (35.3-44.9); Hemoglobin 8.5 g/dL (11.5-15.4); Immature Granulocytes % 0.7 % (0-4); Lymphocytes # 1.5 K/mcL (0.6-4.6); Lymphocytes % 10.4 %; Mean Corpuscular HGB Conc 31.3 g/dL (31.6-35.5); Mean Corpuscular Hemoglobin 29.4 pg (28.0-33.3); Mean Corpuscular Volume 94.1 fL (83.0-100.0); Mean Platelet Volume 9.2 fL (9.4-12.4); Monocytes # 1.2 K/mcL (0.0-1.3); Monocytes % 8.1 %; Neutrophils # 11.4 K/mcL (1.6-8.9); Platelet Count 463 K/mcL (140-400); Red Blood Count 2.89 M/mcL (3.82-4.97); Red Cell Distribution Width 12.8 % (11.5-14.5); Segmented Neutrophils % 77.5 %; White Blood Count 14.8 K/mcL (4.3-11.1)
[2019-03-29 06:23] LABS: Magnesium 1.7 mg/dL (1.6-2.6); Phosphorous 3.2 mg/dL (2.7-4.5); Potassium 3.4 mEq/L (3.5-5.1)
[2019-03-29] MEDS: Levothyroxine 25 MCG TABLET PO SCH (06:33)
[2019-03-29] MEDS: *HR* Heparin 5,000 UNIT/ML VIAL SQ SCH ×2 (06:33→17:29)
[2019-03-29] MEDS: *HR* Dextrose 50 % in Water (Syg) 50 ML SYRINGE IVP PRN ×2 (07:45→09:39)
[2019-03-29] MEDS: Insulin LISPRO 300 UNITS/3 ML VIAL SQ SCH ×3 (07:48→17:19)
[2019-03-29] MEDS: Furosemide 40 MG/4 ML VIAL IVP SCH ×2 (07:49→17:29)
[2019-03-29] MEDS: Cefepime HCl 1,000 MG in 0.9 % Sodium Chloride Mini Bag 100 ML IVPB SCH ×3 (07:49→23:14)
[2019-03-29] MEDS: Azithromycin 500 MG in 0.9 % Sodium Chloride 250 ML IVPB SCH (09:47)
[2019-03-29] MEDS: metOLazone 5 MG TABLET PO SCH (11:25)
[2019-03-29] MEDS: Spironolactone 25 MG TABLET PO SCH (11:26)
[2019-03-29] MEDS: Insulin DETEMIR 100 UNIT/ML X5UNITS SQ SCH (23:09)
[2019-03-30] MEDS: *HR* Heparin 5,000 UNIT/ML VIAL SQ SCH ×2 (05:00→17:00)
[2019-03-30] MEDS: Levothyroxine 25 MCG TABLET PO SCH (05:15)
[2019-03-30 05:46] LABS: Basophils # 0.1 K/mcL (0.0-0.2); Basophils % 0.7 %; Eosinophils # 0.6 K/mcL (0.0-0.6); Eosinophils % 3.6 %; Hematocrit 26.9 % (35.3-44.9); Hemoglobin 8.4 g/dL (11.5-15.4); Immature Granulocytes % 0.9 % (0-4); Lymphocytes # 1.8 K/mcL (0.6-4.6); Lymphocytes % 11.5 %; Mean Corpuscular HGB Conc 31.2 g/dL (31.6-35.5); Mean Corpuscular Hemoglobin 29.5 pg (28.0-33.3); Mean Corpuscular Volume 94.4 fL (83.0-100.0); Mean Platelet Volume 9.2 fL (9.4-12.4); Monocytes # 1.2 K/mcL (0.0-1.3); Neutrophils # 11.6 K/mcL (1.6-8.9); Platelet Count 419 K/mcL (140-400); Red Blood Count 2.85 M/mcL (3.82-4.97); Segmented Neutrophils % 75.3 %; White Blood Count 15.4 K/mcL (4.3-11.1)
[2019-03-30 06:02] LABS: Calcium 8.8 mg/dL (8.6-10.3); Magnesium 1.7 mg/dL (1.6-2.6); Phosphorous 3.4 mg/dL (2.7-4.5); Potassium 3.4 mEq/L (3.5-5.1)
[2019-03-30] MEDS ORDERED: Potassium Chloride Elixir 20 MEQ/15 ML UDC PO SCH (07:45)
[2019-03-30] MEDS: Cefepime HCl 1,000 MG in 0.9 % Sodium Chloride Mini Bag 100 ML IVPB SCH ×3 (09:25→23:48)
[2019-03-30] MEDS: Spironolactone 25 MG TABLET PO SCH (09:25)
[2019-03-30] MEDS: Furosemide 40 MG/4 ML VIAL IVP SCH ×2 (09:26→17:56)
[2019-03-30] MEDS: Insulin LISPRO 300 UNITS/3 ML VIAL SQ SCH ×3 (09:26→17:25)
[2019-03-30] MEDS: Azithromycin 500 MG in 0.9 % Sodium Chloride 250 ML IVPB SCH (09:26)
[2019-03-30] MEDS: Insulin DETEMIR 100 UNIT/ML X5UNITS SQ SCH (21:32)
[2019-03-31] MEDS: Ipratropium/Albuterol Neb 3 ML IH PRN ×2 (03:39→07:25)
[2019-03-31] MEDS: *HR* Heparin 5,000 UNIT/ML VIAL SQ SCH (05:18)
[2019-03-31] MEDS: Levothyroxine 25 MCG TABLET PO SCH (05:18)
[2019-03-31 05:27] LABS: Basophils # 0.1 K/mcL (0.0-0.2); Basophils % 0.6 %; Eosinophils # 0.6 K/mcL (0.0-0.6); Eosinophils % 3.5 %; Hematocrit 27.2 % (35.3-44.9); Hemoglobin 8.5 g/dL (11.5-15.4); Immature Granulocytes % 0.8 % (0-4); Lymphocytes # 2.2 K/mcL (0.6-4.6); Lymphocytes % 13.6 %; Mean Corpuscular HGB Conc 31.3 g/dL (31.6-35.5); Mean Corpuscular Hemoglobin 29.6 pg (28.0-33.3); Mean Corpuscular Volume 94.8 fL (83.0-100.0); Mean Platelet Volume 9.4 fL (9.4-12.4); Monocytes # 1.4 K/mcL (0.0-1.3); Monocytes % 8.9 %; Neutrophils # 11.5 K/mcL (1.6-8.9); Platelet Count 432 K/mcL (140-400); Red Blood Count 2.87 M/mcL (3.82-4.97); Red Cell Distribution Width 12.8 % (11.5-14.5); Segmented Neutrophils % 72.6 %; White Blood Count 15.9 K/mcL (4.3-11.1)
[2019-03-31 05:43] LABS: Calcium 8.9 mg/dL (8.6-10.3); Magnesium 1.7 mg/dL (1.6-2.6); Phosphorous 3.5 mg/dL (2.7-4.5); Potassium 3.4 mEq/L (3.5-5.1)
[2019-03-31] MEDS: Insulin LISPRO 300 UNITS/3 ML VIAL SQ SCH ×3 (08:35→16:35)
[2019-03-31] MEDS: Cefepime HCl 1,000 MG in 0.9 % Sodium Chloride Mini Bag 100 ML IVPB SCH ×2 (08:40→16:36)
[2019-03-31] MEDS: Spironolactone 25 MG TABLET PO SCH (08:40)
[2019-03-31] MEDS: Furosemide 40 MG/4 ML VIAL IVP SCH ×2 (08:41→16:35)
[2019-03-31] MEDS ORDERED: Azithromycin 250 MG TABLET PO SCH (09:00)
[2019-03-31 14:15] LABS: Thyroid Stimulating Hormone 18.948 mcIU/mL (0.340-5.600)
[2019-03-31 14:16] LABS: Triiodothyronine (T3) Free 2.18 pg/mL (2.50-3.90)
[2019-03-31] MEDS ORDERED: Insulin DETEMIR 100 UNIT/ML X5UNITS SQ SCH (21:00)
[2019-04-01] MEDS: Cefepime HCl 1,000 MG in 0.9 % Sodium Chloride Mini Bag 100 ML IVPB SCH ×4 (00:03→23:27)
[2019-04-01] MEDS: Levothyroxine 25 MCG TABLET PO SCH (05:35)
[2019-04-01 06:01] LABS: INR 1.2; Prothrombin Time 13.3 Seconds (9.4-12.1)
[2019-04-01 06:02] LABS: Basophils # 0.1 K/mcL (0.0-0.2); Basophils % 0.9 %; Calcium 8.6 mg/dL (8.6-10.3); Eosinophils # 0.5 K/mcL (0.0-0.6); Eosinophils % 3.2 %; Hematocrit 26.4 % (35.3-44.9); Hemoglobin 8.3 g/dL (11.5-15.4); Lymphocytes # 1.8 K/mcL (0.6-4.6); Lymphocytes % 12.7 %; Magnesium 1.7 mg/dL (1.6-2.6); Mean Corpuscular HGB Conc 31.4 g/dL (31.6-35.5); Mean Corpuscular Hemoglobin 29.6 pg (28.0-33.3); Mean Corpuscular Volume 94.3 fL (83.0-100.0); Mean Platelet Volume 9.5 fL (9.4-12.4); Monocytes # 1.3 K/mcL (0.0-1.3); Monocytes % 8.8 %; Neutrophils # 10.6 K/mcL (1.6-8.9); Phosphorous 3.5 mg/dL (2.7-4.5); Platelet Count 409 K/mcL (140-400); Potassium 3.8 mEq/L (3.5-5.1); Red Cell Distribution Width 12.9 % (11.5-14.5); Segmented Neutrophils % 73.4 %; White Blood Count 14.4 K/mcL (4.3-11.1)
[2019-04-01] MEDS: Furosemide 40 MG/4 ML VIAL IVP SCH ×2 (08:38→16:49)
[2019-04-01] MEDS: Insulin LISPRO 300 UNITS/3 ML VIAL SQ SCH ×3 (08:38→16:50)
[2019-04-01] MEDS: Spironolactone 25 MG TABLET PO SCH (08:39)
[2019-04-01] MEDS ORDERED: 0.9 % Sodium Chloride 500 ML ONE (11:51)
[2019-04-01] MEDS ORDERED: *HR* Midazolam HCl 2 MG/2 ML VIAL IVP ONE (12:04)
[2019-04-01] MEDS ORDERED: *HR* FentaNYL (PF) 100 MCG/2 ML VIAL IVP ONE (12:04)
[2019-04-01] MEDS: Insulin DETEMIR 100 UNIT/ML X5UNITS SQ SCH (23:26)
[2019-04-02] MEDS: Acetaminophen 325 MG TABLET PO PRN ×2 (00:06→22:25)
[2019-04-02 03:46] LABS: Calcium 8.6 mg/dL (8.6-10.3); Magnesium 1.6 mg/dL (1.6-2.6); Potassium 3.2 mEq/L (3.5-5.1)
[2019-04-02] MEDS: Levothyroxine 25 MCG TABLET PO SCH (05:36)
[2019-04-02] MEDS: Spironolactone 25 MG TABLET PO SCH (08:21)
[2019-04-02] MEDS: Insulin LISPRO 300 UNITS/3 ML VIAL SQ SCH ×3 (08:22→15:54)
[2019-04-02] MEDS: Furosemide 40 MG/4 ML VIAL IVP SCH ×2 (08:22→15:54)
[2019-04-02] MEDS: Insulin DETEMIR 100 UNIT/ML X5UNITS SQ SCH (22:25)
[2019-04-03] MEDS ORDERED: Mag Hydrox/Al Hydrox/Simeth 30 ML UDC PO ONE (03:05)
[2019-04-03] MEDS: Levothyroxine 25 MCG TABLET PO SCH (06:08)
[2019-04-03 07:33] LABS: Basophils # 0.1 K/mcL (0.0-0.2); Basophils % 0.8 %; Eosinophils # 0.7 K/mcL (0.0-0.6); Eosinophils % 5.2 %; Hematocrit 27.1 % (35.3-44.9); Hemoglobin 8.5 g/dL (11.5-15.4); Lymphocytes # 1.5 K/mcL (0.6-4.6); Lymphocytes % 10.8 %; Mean Corpuscular HGB Conc 31.4 g/dL (31.6-35.5); Mean Corpuscular Hemoglobin 29.6 pg (28.0-33.3); Mean Corpuscular Volume 94.4 fL (83.0-100.0); Mean Platelet Volume 9.5 fL (9.4-12.4); Monocytes # 1.1 K/mcL (0.0-1.3); Monocytes % 8.1 %; Neutrophils # 10.2 K/mcL (1.6-8.9); Platelet Count 378 K/mcL (140-400); Red Blood Count 2.87 M/mcL (3.82-4.97); Red Cell Distribution Width 12.7 % (11.5-14.5); Segmented Neutrophils % 74.1 %; White Blood Count 13.8 K/mcL (4.3-11.1)
[2019-04-03 07:53] LABS: Calcium 9.1 mg/dL (8.6-10.3); Potassium 3.2 mEq/L (3.5-5.1)
[2019-04-03] MEDS: Spironolactone 25 MG TABLET PO SCH (08:54)
[2019-04-03] MEDS: Insulin LISPRO 300 UNITS/3 ML VIAL SQ SCH ×3 (08:55→17:45)
[2019-04-03] MEDS: Furosemide 40 MG/4 ML VIAL IVP SCH ×2 (08:55→17:45)
[2019-04-03] MEDS: Ondansetron 4 MG/2 ML VIAL IVP PRN (12:23)
[2019-04-03] MEDS: Insulin DETEMIR 100 UNIT/ML X5UNITS SQ SCH (20:10)
[2019-04-03] MEDS: Acetaminophen 325 MG TABLET PO PRN (20:11)
[2019-04-04] MEDS: Levothyroxine 25 MCG TABLET PO SCH (06:10)
[2019-04-04 07:34] LABS: Basophils # 0.1 K/mcL (0.0-0.2); Basophils % 0.7 %; Eosinophils # 0.6 K/mcL (0.0-0.6); Eosinophils % 5.1 %; Hematocrit 27.1 % (35.3-44.9); Hemoglobin 8.8 g/dL (11.5-15.4); Lymphocytes # 1.5 K/mcL (0.6-4.6); Lymphocytes % 12.7 %; Mean Corpuscular HGB Conc 32.5 g/dL (31.6-35.5); Mean Corpuscular Hemoglobin 29.4 pg (28.0-33.3); Mean Corpuscular Volume 90.6 fL (83.0-100.0); Mean Platelet Volume 9.6 fL (9.4-12.4); Monocytes # 0.9 K/mcL (0.0-1.3); Monocytes % 7.8 %; Neutrophils # 8.8 K/mcL (1.6-8.9); Platelet Count 423 K/mcL (140-400); Red Blood Count 2.99 M/mcL (3.82-4.97); Red Cell Distribution Width 12.8 % (11.5-14.5); Segmented Neutrophils % 72.7 %; White Blood Count 12.1 K/mcL (4.3-11.1)
[2019-04-04] MEDS: Insulin LISPRO 300 UNITS/3 ML VIAL SQ SCH ×3 (07:45→18:06)
[2019-04-04 07:52] LABS: Calcium 9.2 mg/dL (8.6-10.3); Potassium 3.7 mEq/L (3.5-5.1)
[2019-04-04] MEDS: Furosemide 40 MG/4 ML VIAL IVP SCH ×2 (07:57→18:06)
[2019-04-04] MEDS: Spironolactone 25 MG TABLET PO SCH (09:39)
[2019-04-04] MEDS: Acetaminophen 325 MG TABLET PO PRN (12:52)
[2019-04-04] MEDS: Ondansetron 4 MG/2 ML VIAL IVP PRN (12:54)
[2019-04-04] MEDS: Insulin DETEMIR 100 UNIT/ML X5UNITS SQ SCH (20:56)
[2019-04-05] MEDS: Levothyroxine 25 MCG TABLET PO SCH (05:24)
[2019-04-05 06:31] LABS: Calcium 9.1 mg/dL (8.6-10.3); Potassium 3.6 mEq/L (3.5-5.1)
[2019-04-05] MEDS: Furosemide 40 MG/4 ML VIAL IVP SCH ×2 (08:59→17:43)
[2019-04-05] MEDS: Insulin LISPRO 300 UNITS/3 ML VIAL SQ SCH ×3 (08:59→17:43)
[2019-04-05] MEDS: Spironolactone 25 MG TABLET PO SCH (09:00)
[2019-04-05] MEDS: Insulin DETEMIR 100 UNIT/ML X5UNITS SQ SCH (19:23)
[2019-04-06] MEDS: Ipratropium/Albuterol Neb 3 ML IH PRN (03:35)
[2019-04-06 05:39] LABS: Basophils # 0.1 K/mcL (0.0-0.2); Basophils % 0.6 %; Eosinophils # 0.6 K/mcL (0.0-0.6); Eosinophils % 3.7 %; Hemoglobin 8.5 g/dL (11.5-15.4); Immature Granulocytes % 0.8 % (0-4); Lymphocytes # 2.9 K/mcL (0.6-4.6); Lymphocytes % 18.4 %; Mean Corpuscular HGB Conc 32.7 g/dL (31.6-35.5); Mean Corpuscular Hemoglobin 29.1 pg (28.0-33.3); Mean Platelet Volume 9.4 fL (9.4-12.4); Monocytes # 1.4 K/mcL (0.0-1.3); Monocytes % 8.9 %; Neutrophils # 10.5 K/mcL (1.6-8.9); Platelet Count 402 K/mcL (140-400); Red Blood Count 2.92 M/mcL (3.82-4.97); Red Cell Distribution Width 12.8 % (11.5-14.5); Segmented Neutrophils % 67.6 %; White Blood Count 15.6 K/mcL (4.3-11.1)
[2019-04-06 06:03] LABS: Potassium 2.9 mEq/L (3.5-5.1)
[2019-04-06] MEDS: Levothyroxine 25 MCG TABLET PO SCH (06:41)
[2019-04-06 08:09] LABS: Magnesium 1.6 mg/dL (1.6-2.6)
[2019-04-06] MEDS: Spironolactone 25 MG TABLET PO SCH (09:22)
[2019-04-06] MEDS: Insulin LISPRO 300 UNITS/3 ML VIAL SQ SCH ×3 (09:22→17:10)
[2019-04-06] MEDS: Ondansetron 4 MG/2 ML VIAL IVP PRN (13:26)
[2019-04-06 15:28] LABS: Potassium 3.2 mEq/L (3.5-5.1)
[2019-04-06] MEDS: *HR* Heparin 5,000 UNIT/ML VIAL SQ SCH (17:11)
[2019-04-06 17:15] LABS: C.difficile Toxin A/B Gene PCR Not detected (Not detect); Campylobacter by PCR Not detected (Not detect); Plesiomonas shigelloides PCR Not detected (Not detect); Vibrio PCR Not detected (Not detect)
[2019-04-06 17:16] LABS: Adenovirus F 40/41 PCR Not detected (Not detect); Astrovirus PCR Not detected (Not detect); Cryptosporidium by PCR Not detected (Not detect); Cyclospora cayetanensis PCR Not detected (Not detect); E. coli O157 by PCR Not detected (Not detect); Entamoeba histolytica PCR Not detected (Not detect); Enteroaggregative E.coli(EAEC) Not detected (Not detect); Enteropathogenic E.coli(EPEC) Not detected (Not detect); Enterotoxigenic E.coli (ETEC) Not detected (Not detect); Giardia lamblia PCR Not detected (Not detect); Norovirus GI/GII PCR Not detected (Not detect); Rotavirus A PCR Not detected (Not detect); Salmonella PCR Not detected (Not detect); Sapovirus PCR Not detected (Not detect); Shig/EnteroinvasiveE coli EIEC Not detected (Not detect); Shigalike tox-prod E coli STEC Not detected (Not detect); Vibrio cholerae PCR Not detected (Not detect); Yersinia enterocolitica PCR Not detected (Not detect)
[2019-04-06] MEDS: Insulin DETEMIR 100 UNIT/ML X5UNITS SQ SCH (20:25)
[2019-04-07 04:46] LABS: Hematocrit 25.6 % (35.3-44.9); Hemoglobin 8.4 g/dL (11.5-15.4); Mean Corpuscular HGB Conc 32.8 g/dL (31.6-35.5); Mean Corpuscular Hemoglobin 29.4 pg (28.0-33.3); Mean Corpuscular Volume 89.5 fL (83.0-100.0); Mean Platelet Volume 9.4 fL (9.4-12.4); Platelet Count 418 K/mcL (140-400); Red Blood Count 2.86 M/mcL (3.82-4.97); Red Cell Distribution Width 12.6 % (11.5-14.5); White Blood Count 12.2 K/mcL (4.3-11.1)
[2019-04-07] MEDS: *HR* Heparin 5,000 UNIT/ML VIAL SQ SCH ×2 (05:09→16:58)
[2019-04-07] MEDS: Levothyroxine 25 MCG TABLET PO SCH (05:09)
[2019-04-07 05:29] LABS: BUN/Creatinine Ratio 41 (6-26); Blood Urea Nitrogen 53 mg/dL (6-20); Carbon Dioxide 33 mEq/L (23-29); Chloride 98 mEq/L (98-107); Glucose 188 mg/dL (70-105); Osmolality,Calculated 303 (280-300); Potassium 4.1 mEq/L (3.5-5.1); Sodium 137 mEq/L (136-145); eGFR For African Americans 53 (> 60); eGFR For Non-African Americans 43 (> 60)
[2019-04-07] MEDS: Insulin LISPRO 300 UNITS/3 ML VIAL SQ SCH ×3 (09:48→16:57)
[2019-04-07] MEDS: Furosemide 40 MG/4 ML VIAL IVP SCH ×2 (09:50→16:57)
[2019-04-07] MEDS: Spironolactone 25 MG TABLET PO SCH (09:50)
[2019-04-07] MEDS: Ondansetron 4 MG/2 ML VIAL IVP PRN (12:27)
[2019-04-07 16:34] LABS: Prothrombin Time 11.4 Seconds (9.4-12.1)
[2019-04-07 18:16] LABS: Lactate Dehydrogenase 220 Units/L (140-271); Total Protein 5.2 g/dL (6.4-8.9)
[2019-04-07] MEDS ORDERED: Furosemide 60 MG in 0.9 % Sodium Chloride 50 ML IVPB ONE (19:36)
[2019-04-07 19:49] LABS: Glucose,Pleural Fluid 183 mg/dL (No Ref Range); LDH,Pleural Fluid 51 Units/L (No Ref Range); Total Protein,Pleural Fluid < 3.0 g/dL
[2019-04-07 21:02] LABS: RBC,Pleural Fluid 0.015 M/mcL
[2019-04-07 21:08] LABS: Appearance of Pleural Fl Cloudy (Clear); Basophils,Pleural Fluid 0 %; Eosinophils,Pleural Fluid 0 %
[2019-04-07] MEDS: Insulin DETEMIR 100 UNIT/ML X5UNITS SQ SCH (21:53)
[2019-04-08] MEDS: Levothyroxine 25 MCG TABLET PO SCH (06:01)
[2019-04-08] MEDS: *HR* Heparin 5,000 UNIT/ML VIAL SQ SCH (06:01)
[2019-04-08 06:09] LABS: Calcium 8.8 mg/dL (8.6-10.3); Magnesium 1.9 mg/dL (1.6-2.6); Potassium 4.2 mEq/L (3.5-5.1)
[2019-04-08] MEDS: Insulin LISPRO 300 UNITS/3 ML VIAL SQ SCH ×2 (07:53→12:21)
[2019-04-08] MEDS: Furosemide 40 MG/4 ML VIAL IVP SCH (07:54)
[2019-04-08] MEDS: Spironolactone 25 MG TABLET PO SCH (07:54)
[2019-04-08] MEDS ORDERED: Furosemide 40 MG/4 ML VIAL IVP ONE (15:00)
[2019-04-08] MEDS ORDERED: Furosemide 80 MG in 0.9 % Sodium Chloride 50 ML IV ONE (15:00)
[2019-04-08 15:37] VITALS: BP 124/73
== END 2019-04-08 16:48 | DRG 698 ==
LOC: 2ANU 15:57 → EMEROOARM 15:57 → 2ANU 21:28 → SUATTDRO 03-27 12:29
PROVIDERS: ADMIT Family Medicine; ATTEND Internal Medicine

== ENCOUNTER 2019-04-12 13:26 | Inpatient (IN) ==
[2019-04-12] MEDS ORDERED: Furosemide 40 MG/4 ML VIAL IVP ONE (14:35)
[2019-04-12 14:47] LABS: White Blood Count 11.9 K/mcL (4.3-11.1)
[2019-04-12 14:48] LABS: Basophils # 0.1 K/mcL (0.0-0.2); Basophils % 0.4 %; Eosinophils # 0.6 K/mcL (0.0-0.6); Eosinophils % 4.9 %; Hematocrit 26.5 % (35.3-44.9); Hemoglobin 8.4 g/dL (11.5-15.4); Immature Granulocytes % 0.5 % (0-4); Lymphocytes # 2.1 K/mcL (0.6-4.6); Lymphocytes % 17.5 %; Mean Corpuscular HGB Conc 31.7 g/dL (31.6-35.5); Mean Corpuscular Hemoglobin 28.9 pg (28.0-33.3); Mean Corpuscular Volume 91.1 fL (83.0-100.0); Mean Platelet Volume 9.2 fL (9.4-12.4); Monocytes # 0.8 K/mcL (0.0-1.3); Monocytes % 6.4 %; Neutrophils # 8.4 K/mcL (1.6-8.9); Platelet Count 501 K/mcL (140-400); Red Blood Count 2.91 M/mcL (3.82-4.97); Red Cell Distribution Width 12.9 % (11.5-14.5); Segmented Neutrophils % 70.3 %
[2019-04-12 15:00] LABS: VBG HCO3 30 mEq/L (21-27); VBG PCO2 43 mmHg (41-51); VBG PH 7.45 pH Units (7.32-7.42); VBG PO2 96 mmHg (25-50)
[2019-04-12 15:06] LABS: BUN/Creatinine Ratio 53 (6-26); Blood Urea Nitrogen 52 mg/dL (6-20); Calcium 8.9 mg/dL (8.6-10.3); Carbon Dioxide 31 mEq/L (23-29); Chloride 97 mEq/L (98-107); Glucose 442 mg/dL (70-105); Osmolality,Calculated 313 (280-300); Potassium 4.4 mEq/L (3.5-5.1); Sodium 135 mEq/L (136-145); eGFR For African Americans > 60 (> 60); eGFR For Non-African Americans > 60 (> 60)
[2019-04-12 15:07] LABS: Troponin I 0.03 ng/mL (< 0.04)
[2019-04-12] MEDS ORDERED: Ondansetron 4 MG/2 ML VIAL IVP PRN (15:56)
[2019-04-12] MEDS ORDERED: Insulin LISPRO 300 UNITS/3 ML VIAL SQ ONE (16:01)
[2019-04-12] MEDS ORDERED: Dextrose Gel 15 GM/37.5 ML TUBE PO PRN (16:02)
[2019-04-12 16:52] LABS: Prothrombin Time 11.4 Seconds (9.4-12.1)
[2019-04-12] MEDS: Spironolactone 25 MG TABLET PO SCH (18:26)
[2019-04-12] MEDS: Insulin LISPRO 300 UNITS/3 ML VIAL SQ SCH ×2 (18:28→20:38)
[2019-04-12 19:00] LABS: Lactate Dehydrogenase 222 Units/L (140-271)
[2019-04-12 20:48] LABS: RBC,Pleural Fluid 0.003 M/mcL
[2019-04-12 20:52] LABS: Glucose,Pleural Fluid 448 mg/dL (No Ref Range); LDH,Pleural Fluid 49 Units/L (No Ref Range); Total Protein,Pleural Fluid < 3.0 g/dL
[2019-04-12] MEDS ORDERED: Insulin DETEMIR 100 UNIT/ML X5UNITS SQ SCH ×2 (21:00)
[2019-04-12 21:39] LABS: Appearance of Pleural Fl Cloudy (Clear); Basophils,Pleural Fluid 0 %; Eosinophils,Pleural Fluid 0 %
[2019-04-12] MEDS: Furosemide 60 MG in 0.9 % Sodium Chloride 50 ML IV SCH (21:45)
[2019-04-13 01:33] LABS: Basophils # 0.1 K/mcL (0.0-0.2); Basophils % 0.6 %; Eosinophils # 0.7 K/mcL (0.0-0.6); Eosinophils % 5.5 %; Hematocrit 25.1 % (35.3-44.9); Immature Granulocytes % 0.5 % (0-4); Lymphocytes # 2.3 K/mcL (0.6-4.6); Lymphocytes % 18.1 %; Mean Corpuscular HGB Conc 31.9 g/dL (31.6-35.5); Mean Corpuscular Hemoglobin 28.9 pg (28.0-33.3); Mean Corpuscular Volume 90.6 fL (83.0-100.0); Mean Platelet Volume 9.4 fL (9.4-12.4); Monocytes % 7.5 %; Neutrophils # 8.7 K/mcL (1.6-8.9); Platelet Count 449 K/mcL (140-400); Red Blood Count 2.77 M/mcL (3.82-4.97); Red Cell Distribution Width 12.7 % (11.5-14.5); Segmented Neutrophils % 67.8 %; White Blood Count 12.8 K/mcL (4.3-11.1)
[2019-04-13 01:51] LABS: BUN/Creatinine Ratio 59 (6-26); Blood Urea Nitrogen 51 mg/dL (6-20); Carbon Dioxide 31 mEq/L (23-29); Chloride 99 mEq/L (98-107); Glucose 201 mg/dL (70-105); Osmolality,Calculated 301 (280-300); Potassium 3.9 mEq/L (3.5-5.1); Sodium 136 mEq/L (136-145); eGFR For African Americans > 60 (> 60); eGFR For Non-African Americans > 60 (> 60)
[2019-04-13 03:44] LABS: Bilirubin,Urine Negative (Negative); Blood,Urine Small (Negative); Clarity,Urine Turbid (Clear); Color,Urine Yellow (Yellow); Glucose,Urine (UA) 250 mg/dL (Normal); Ketones,Urine Negative (Negative); Leukocyte Esterase,Urine Large (Negative); Nitrite,Urine Negative (Negative); Protein,Urine >=300 mg/dL (Neg-Trace); Specific Gravity,Urine 1.016 (1.010-1.025); Urobilinogen,Urine Normal (Normal)
[2019-04-13 03:45] LABS: Bacteria,Urine None Seen per hpf (None-Few); Hyaline Casts,Urine None Seen per lpf (None-Few); Squamous Epithelial Cell,Urine Many per lpf (None-Few); WBC,Urine TNTC per hpf (0-3)
[2019-04-13 04:24] LABS: RBC,Urine 0-3 per hpf (0-3); Yeast,Urine Few per hpf (None Seen)
[2019-04-13] MEDS: Insulin LISPRO 300 UNITS/3 ML VIAL SQ SCH ×4 (07:41→20:56)
[2019-04-13] MEDS: Furosemide 60 MG in 0.9 % Sodium Chloride 50 ML IV SCH (08:15)
[2019-04-13] MEDS: Spironolactone 25 MG TABLET PO SCH (08:16)
[2019-04-13] MEDS: Levothyroxine 25 MCG TABLET PO SCH (08:16)
[2019-04-13] MEDS ORDERED: Spironolactone 25 MG TABLET PO SCH (09:00)
[2019-04-13] MEDS ORDERED: NON-FORMULARY MEDICATION 1 EACH EACH (Lisinopril 2.5 MG) PO SCH (09:00)
[2019-04-13] MEDS ORDERED: Furosemide 40 MG/4 ML VIAL IVP SCH ×2 (09:15→17:00)
[2019-04-13] MEDS: Insulin DETEMIR 100 UNIT/ML X5UNITS SQ SCH (20:38)
[2019-04-14 06:09] LABS: Hematocrit 24.9 % (35.3-44.9); Hemoglobin 8.1 g/dL (11.5-15.4); Mean Corpuscular HGB Conc 32.5 g/dL (31.6-35.5); Mean Corpuscular Hemoglobin 28.8 pg (28.0-33.3); Mean Corpuscular Volume 88.6 fL (83.0-100.0); Mean Platelet Volume 9.4 fL (9.4-12.4); Platelet Count 496 K/mcL (140-400); Red Blood Count 2.81 M/mcL (3.82-4.97); Red Cell Distribution Width 13.2 % (11.5-14.5); White Blood Count 11.9 K/mcL (4.3-11.1)
[2019-04-14 06:23] LABS: BUN/Creatinine Ratio 57 (6-26); Blood Urea Nitrogen 49 mg/dL (6-20); Calcium 8.8 mg/dL (8.6-10.3); Carbon Dioxide 31 mEq/L (23-29); Chloride 98 mEq/L (98-107); Glucose 208 mg/dL (70-105); Magnesium 1.7 mg/dL (1.6-2.6); Osmolality,Calculated 307 (280-300); Sodium 139 mEq/L (136-145); eGFR For African Americans > 60 (> 60); eGFR For Non-African Americans > 60 (> 60)
[2019-04-14] MEDS: Levothyroxine 25 MCG TABLET PO SCH (09:18)
[2019-04-14] MEDS: Bumetanide 1 MG/4 ML VIAL IVP SCH ×2 (09:18→16:38)
[2019-04-14] MEDS: Insulin LISPRO 300 UNITS/3 ML VIAL SQ SCH ×4 (09:19→20:23)
[2019-04-14] MEDS: Insulin DETEMIR 100 UNIT/ML X5UNITS SQ SCH (20:29)
[2019-04-15] MEDS: Acetaminophen 325 MG TABLET PO PRN ×2 (00:38→17:33)
[2019-04-15 01:37] LABS: Hematocrit 23.9 % (35.3-44.9); Hemoglobin 7.5 g/dL (11.5-15.4); Mean Corpuscular HGB Conc 31.4 g/dL (31.6-35.5); Mean Corpuscular Volume 92.3 fL (83.0-100.0); Mean Platelet Volume 9.4 fL (9.4-12.4); Platelet Count 445 K/mcL (140-400); Red Blood Count 2.59 M/mcL (3.82-4.97); Red Cell Distribution Width 13.2 % (11.5-14.5); White Blood Count 12.4 K/mcL (4.3-11.1)
[2019-04-15 01:56] LABS: BUN/Creatinine Ratio 58 (6-26); Blood Urea Nitrogen 53 mg/dL (6-20); Calcium 8.5 mg/dL (8.6-10.3); Carbon Dioxide 32 mEq/L (23-29); Chloride 100 mEq/L (98-107); Glucose 180 mg/dL (70-105); Osmolality,Calculated 301 (280-300); Potassium 4.1 mEq/L (3.5-5.1); Sodium 136 mEq/L (136-145); eGFR For African Americans > 60 (> 60); eGFR For Non-African Americans > 60 (> 60)
[2019-04-15] MEDS: Bumetanide 1 MG/4 ML VIAL IVP SCH ×2 (07:54→19:30)
[2019-04-15] MEDS: Levothyroxine 25 MCG TABLET PO SCH (07:55)
[2019-04-15] MEDS: Insulin LISPRO 300 UNITS/3 ML VIAL SQ SCH ×4 (07:56→21:17)
[2019-04-15 13:18] LABS: Albumin 2.6 g/dL (3.5-5.7); Albumin/Globulin Ratio 0.8 (1.1-2.2); Bilirubin,Direct 0.1 mg/dL (0.0-0.2); Bilirubin,Indirect 0.1 mg/dL (0.0-1.0); Bilirubin,Total 0.2 mg/dL (0.3-1.0); Globulin 3.1 g/dL (2.4-3.5); Total Protein 5.7 g/dL (6.4-8.9)
[2019-04-15] MEDS: Albumin 25% 25gram/100mL 25 GM/100 ML IV.SOLN IVPB SCH (17:34)
[2019-04-15] MEDS: levoFLOXacin 750 MG/150 ML 750 MG/150 ML BAG IVPB SCH (19:49)
[2019-04-15] MEDS ORDERED: Albumin 25% 25gram/100mL 25 GM/100 ML IV.SOLN IVPB SCH (21:00)
[2019-04-15] MEDS: Insulin DETEMIR 100 UNIT/ML X5UNITS SQ SCH (21:17)
[2019-04-16 07:44] LABS: Basophils # 0.1 K/mcL (0.0-0.2); Basophils % 0.6 %; Eosinophils # 0.5 K/mcL (0.0-0.6); Eosinophils % 4.8 %; Hematocrit 23.6 % (35.3-44.9); Hemoglobin 7.5 g/dL (11.5-15.4); Immature Granulocytes % 0.4 % (0-4); Lymphocytes % 27.8 %; Mean Corpuscular HGB Conc 31.8 g/dL (31.6-35.5); Mean Corpuscular Hemoglobin 29.1 pg (28.0-33.3); Mean Corpuscular Volume 91.5 fL (83.0-100.0); Mean Platelet Volume 9.2 fL (9.4-12.4); Monocytes % 9.2 %; Neutrophils # 6.2 K/mcL (1.6-8.9); Platelet Count 440 K/mcL (140-400); Red Blood Count 2.58 M/mcL (3.82-4.97); Red Cell Distribution Width 13.2 % (11.5-14.5); Segmented Neutrophils % 57.2 %; White Blood Count 10.9 K/mcL (4.3-11.1)
[2019-04-16 08:03] LABS: Alanine Aminotransferase 14 Units/L (7-52); Albumin 2.8 g/dL (3.5-5.7); Albumin/Globulin Ratio 0.9 (1.1-2.2); Alkaline Phosphatase 584 Units/L (34-104); Aspartate Amino Transferase 19 Units/L (13-39); BUN/Creatinine Ratio 58 (6-26); Bilirubin,Total 0.3 mg/dL (0.3-1.0); Blood Urea Nitrogen 54 mg/dL (6-20); Calcium 8.7 mg/dL (8.6-10.3); Carbon Dioxide 32 mEq/L (23-29); Chloride 99 mEq/L (98-107); Globulin 3.2 g/dL (2.4-3.5); Glucose 64 mg/dL (70-105); Osmolality,Calculated 301 (280-300); Potassium 4.2 mEq/L (3.5-5.1); Sodium 139 mEq/L (136-145); eGFR For African Americans > 60 (> 60); eGFR For Non-African Americans > 60 (> 60)
[2019-04-16] MEDS: levoFLOXacin 750 MG/150 ML 750 MG/150 ML BAG IVPB SCH (10:36)
[2019-04-16] MEDS: Levothyroxine 25 MCG TABLET PO SCH (10:36)
[2019-04-16] MEDS: Albumin 25% 25gram/100mL 25 GM/100 ML IV.SOLN IVPB SCH ×2 (10:37→21:28)
[2019-04-16] MEDS: Insulin LISPRO 300 UNITS/3 ML VIAL SQ SCH ×4 (10:51→21:29)
[2019-04-16] MEDS: Bumetanide 1 MG/4 ML VIAL IVP SCH ×2 (13:02→18:14)
[2019-04-16] MEDS ORDERED: Doxycycline 100 MG in 0.9 % Sodium Chloride Mini Bag 100 ML IVPB SCH (18:00)
[2019-04-16] MEDS: Insulin DETEMIR 100 UNIT/ML X5UNITS SQ SCH (21:29)
[2019-04-17 05:29] LABS: Hematocrit 23.6 % (35.3-44.9); Hemoglobin 7.4 g/dL (11.5-15.4); Mean Corpuscular HGB Conc 31.4 g/dL (31.6-35.5); Mean Corpuscular Hemoglobin 28.6 pg (28.0-33.3); Mean Corpuscular Volume 91.1 fL (83.0-100.0); Mean Platelet Volume 9.6 fL (9.4-12.4); Platelet Count 409 K/mcL (140-400); Red Blood Count 2.59 M/mcL (3.82-4.97); Red Cell Distribution Width 13.2 % (11.5-14.5); White Blood Count 11.2 K/mcL (4.3-11.1)
[2019-04-17 05:49] LABS: BUN/Creatinine Ratio 57 (6-26); Blood Urea Nitrogen 55 mg/dL (6-20); Calcium 8.8 mg/dL (8.6-10.3); Carbon Dioxide 30 mEq/L (23-29); Chloride 101 mEq/L (98-107); Glucose 132 mg/dL (70-105); Osmolality,Calculated 303 (280-300); Potassium 4.2 mEq/L (3.5-5.1); Sodium 138 mEq/L (136-145); eGFR For African Americans > 60 (> 60); eGFR For Non-African Americans > 60 (> 60)
[2019-04-17 05:55] LABS: % Iron Saturation 9 % (15-50); Iron 19 mcg/dL (50-170); Transferrin 156 mg/dL (203-362)
[2019-04-17 06:08] LABS: Ferritin 117 ng/mL (10-120)
[2019-04-17 06:13] LABS: Folate 20.9 ng/mL (3.0-16.0)
[2019-04-17] MEDS ORDERED: Iron Sucrose Complex 400 MG in 0.9 % Sodium Chloride 250 ML IVPB ONE (07:42)
[2019-04-17] MEDS: Insulin LISPRO 300 UNITS/3 ML VIAL SQ SCH ×4 (08:16→21:13)
[2019-04-17] MEDS: Albumin 25% 25gram/100mL 25 GM/100 ML IV.SOLN IVPB SCH ×2 (08:16→15:56)
[2019-04-17] MEDS: Levothyroxine 25 MCG TABLET PO SCH (08:16)
[2019-04-17] MEDS: levoFLOXacin 750 MG TABLET PO SCH (08:16)
[2019-04-17] MEDS: Bumetanide 1 MG/4 ML VIAL IVP SCH (10:43)
[2019-04-17] MEDS ORDERED: Bumetanide 1 MG/4 ML VIAL IVP SCH (17:00)
[2019-04-17] MEDS: Linezolid 600 MG TABLET PO SCH (17:55)
[2019-04-17] MEDS: Insulin DETEMIR 100 UNIT/ML X5UNITS SQ SCH (21:13)
[2019-04-18 05:00] LABS: Basophils # 0.1 K/mcL (0.0-0.2); Basophils % 0.7 %; Eosinophils # 0.5 K/mcL (0.0-0.6); Eosinophils % 4.6 %; Hematocrit 24.7 % (35.3-44.9); Hemoglobin 7.7 g/dL (11.5-15.4); Immature Granulocytes % 0.5 % (0-4); Lymphocytes # 2.6 K/mcL (0.6-4.6); Lymphocytes % 23.4 %; Mean Corpuscular HGB Conc 31.2 g/dL (31.6-35.5); Mean Corpuscular Hemoglobin 28.6 pg (28.0-33.3); Mean Corpuscular Volume 91.8 fL (83.0-100.0); Mean Platelet Volume 9.6 fL (9.4-12.4); Neutrophils # 6.8 K/mcL (1.6-8.9); Platelet Count 427 K/mcL (140-400); Red Blood Count 2.69 M/mcL (3.82-4.97); Red Cell Distribution Width 13.3 % (11.5-14.5); Segmented Neutrophils % 61.8 %; White Blood Count 11.1 K/mcL (4.3-11.1)
[2019-04-18 05:13] LABS: Alanine Aminotransferase 23 Units/L (7-52); Albumin 3.2 g/dL (3.5-5.7); Albumin/Globulin Ratio 1.1 (1.1-2.2); Alkaline Phosphatase 644 Units/L (34-104); Aspartate Amino Transferase 26 Units/L (13-39); BUN/Creatinine Ratio 50 (6-26); Bilirubin,Total 0.4 mg/dL (0.3-1.0); Blood Urea Nitrogen 51 mg/dL (6-20); Calcium 9.3 mg/dL (8.6-10.3); Carbon Dioxide 31 mEq/L (23-29); Chloride 101 mEq/L (98-107); Globulin 2.8 g/dL (2.4-3.5); Glucose 56 mg/dL (70-105); Osmolality,Calculated 297 (280-300); Sodium 138 mEq/L (136-145); eGFR For African Americans > 60 (> 60); eGFR For Non-African Americans 57 (> 60)
[2019-04-18] MEDS: Linezolid 600 MG TABLET PO SCH ×2 (05:43→16:50)
[2019-04-18] MEDS: Insulin LISPRO 300 UNITS/3 ML VIAL SQ SCH ×5 (07:41→22:21)
[2019-04-18] MEDS: Levothyroxine 25 MCG TABLET PO SCH (07:47)
[2019-04-18] MEDS: levoFLOXacin 750 MG TABLET PO SCH (07:47)
[2019-04-18] MEDS: Albumin 25% 25gram/100mL 25 GM/100 ML IV.SOLN IVPB SCH ×2 (07:48→16:50)
[2019-04-18] MEDS: Bumetanide 1 MG/4 ML VIAL IVP SCH ×2 (10:18→18:56)
[2019-04-18] MEDS ORDERED: Insulin DETEMIR 100 UNIT/ML X5UNITS SQ SCH (21:00)
[2019-04-19 04:27] LABS: Basophils # 0.1 K/mcL (0.0-0.2); Basophils % 0.8 %; Eosinophils # 0.6 K/mcL (0.0-0.6); Eosinophils % 4.6 %; Hematocrit 24.2 % (35.3-44.9); Hemoglobin 7.6 g/dL (11.5-15.4); Immature Granulocytes % 0.5 % (0-4); Lymphocytes # 3.1 K/mcL (0.6-4.6); Lymphocytes % 23.8 %; Mean Corpuscular HGB Conc 31.4 g/dL (31.6-35.5); Mean Corpuscular Hemoglobin 28.8 pg (28.0-33.3); Mean Corpuscular Volume 91.7 fL (83.0-100.0); Mean Platelet Volume 9.6 fL (9.4-12.4); Monocytes # 1.1 K/mcL (0.0-1.3); Monocytes % 8.8 %; Neutrophils # 7.9 K/mcL (1.6-8.9); Platelet Count 400 K/mcL (140-400); Red Blood Count 2.64 M/mcL (3.82-4.97); Red Cell Distribution Width 13.4 % (11.5-14.5); Segmented Neutrophils % 61.5 %; White Blood Count 12.8 K/mcL (4.3-11.1)
[2019-04-19 04:49] LABS: Alanine Aminotransferase 25 Units/L (7-52); Albumin 3.4 g/dL (3.5-5.7); Albumin/Globulin Ratio 1.3 (1.1-2.2); Alkaline Phosphatase 693 Units/L (34-104); Aspartate Amino Transferase 29 Units/L (13-39); BUN/Creatinine Ratio 48 (6-26); Bilirubin,Total 0.4 mg/dL (0.3-1.0); Blood Urea Nitrogen 54 mg/dL (6-20); Calcium 9.3 mg/dL (8.6-10.3); Carbon Dioxide 26 mEq/L (23-29); Chloride 99 mEq/L (98-107); Globulin 2.6 g/dL (2.4-3.5); Glucose 266 mg/dL (70-105); Osmolality,Calculated 308 (280-300); Potassium 4.4 mEq/L (3.5-5.1); Sodium 137 mEq/L (136-145); eGFR For African Americans > 60 (> 60); eGFR For Non-African Americans 51 (> 60)
[2019-04-19] MEDS: Linezolid 600 MG TABLET PO SCH ×2 (05:26→18:08)
[2019-04-19] MEDS: Levothyroxine 25 MCG TABLET PO SCH (07:47)
[2019-04-19] MEDS: levoFLOXacin 750 MG TABLET PO SCH (07:47)
[2019-04-19] MEDS: Insulin LISPRO 300 UNITS/3 ML VIAL SQ SCH ×7 (07:47→21:33)
[2019-04-19] MEDS: Albumin 25% 25gram/100mL 25 GM/100 ML IV.SOLN IVPB SCH ×2 (07:48→16:26)
[2019-04-19] MEDS: Bumetanide 1 MG/4 ML VIAL IVP SCH (08:01)
[2019-04-19] MEDS: Furosemide 40 MG/4 ML VIAL IVP SCH ×2 (10:24→18:10)
[2019-04-19] MEDS: carvediloL 6.25 MG TABLET PO SCH ×2 (10:25→16:17)
[2019-04-19] MEDS ORDERED: metOLazone 5 MG TABLET PO SCH (11:30)
[2019-04-19] MEDS: Ondansetron ODT 4 MG TAB.RAPDIS SL PRN (16:18)
[2019-04-19] MEDS: Insulin DETEMIR 100 UNIT/ML X5UNITS SQ SCH (21:43)
[2019-04-20] MEDS: Linezolid 600 MG TABLET PO SCH ×2 (05:08→18:22)
[2019-04-20 05:27] LABS: Hemoglobin 7.1 g/dL (11.5-15.4); Mean Corpuscular HGB Conc 30.9 g/dL (31.6-35.5); Mean Corpuscular Hemoglobin 28.3 pg (28.0-33.3); Mean Corpuscular Volume 91.6 fL (83.0-100.0); Mean Platelet Volume 9.4 fL (9.4-12.4); Platelet Count 398 K/mcL (140-400); Red Blood Count 2.51 M/mcL (3.82-4.97); Red Cell Distribution Width 13.5 % (11.5-14.5); White Blood Count 13.6 K/mcL (4.3-11.1)
[2019-04-20 05:48] LABS: Calcium 9.4 mg/dL (8.6-10.3); Potassium 3.9 mEq/L (3.5-5.1)
[2019-04-20] MEDS: Acetaminophen 325 MG TABLET PO PRN ×2 (06:28→15:58)
[2019-04-20] MEDS: Albumin 25% 25gram/100mL 25 GM/100 ML IV.SOLN IVPB SCH ×2 (06:29→16:01)
[2019-04-20] MEDS: Furosemide 40 MG/4 ML VIAL IVP SCH ×2 (08:02→18:22)
[2019-04-20] MEDS: Levothyroxine 25 MCG TABLET PO SCH (08:04)
[2019-04-20] MEDS: carvediloL 6.25 MG TABLET PO SCH ×2 (08:04→18:23)
[2019-04-20] MEDS: metOLazone 5 MG TABLET PO SCH ×2 (08:04→08:09)
[2019-04-20] MEDS: levoFLOXacin 750 MG TABLET PO SCH (08:05)
[2019-04-20] MEDS: Insulin LISPRO 300 UNITS/3 ML VIAL SQ SCH ×7 (08:07→20:59)
[2019-04-20] MEDS: Ondansetron ODT 4 MG TAB.RAPDIS SL PRN (08:13)
[2019-04-20] MEDS: Insulin DETEMIR 100 UNIT/ML X5UNITS SQ SCH (21:07)
[2019-04-21 02:10] LABS: Basophils # 0.1 K/mcL (0.0-0.2); Basophils % 0.7 %; Eosinophils # 0.5 K/mcL (0.0-0.6); Eosinophils % 3.5 %; Hematocrit 23.2 % (35.3-44.9); Hemoglobin 7.5 g/dL (11.5-15.4); Immature Granulocytes % 0.4 % (0-4); Lymphocytes # 2.8 K/mcL (0.6-4.6); Lymphocytes % 21.3 %; Mean Corpuscular HGB Conc 32.3 g/dL (31.6-35.5); Mean Corpuscular Hemoglobin 28.5 pg (28.0-33.3); Mean Corpuscular Volume 88.2 fL (83.0-100.0); Mean Platelet Volume 9.5 fL (9.4-12.4); Monocytes % 7.4 %; Neutrophils # 8.9 K/mcL (1.6-8.9); Platelet Count 413 K/mcL (140-400); Red Blood Count 2.63 M/mcL (3.82-4.97); Red Cell Distribution Width 13.7 % (11.5-14.5); Segmented Neutrophils % 66.7 %; White Blood Count 13.3 K/mcL (4.3-11.1)
[2019-04-21 02:35] LABS: Calcium 9.6 mg/dL (8.6-10.3); Magnesium 1.7 mg/dL (1.6-2.6); Potassium 3.7 mEq/L (3.5-5.1)
[2019-04-21] MEDS: Linezolid 600 MG TABLET PO SCH ×2 (05:52→18:36)
[2019-04-21] MEDS: Insulin LISPRO 300 UNITS/3 ML VIAL SQ SCH ×7 (07:14→17:46)
[2019-04-21] MEDS: metOLazone 5 MG TABLET PO SCH (07:41)
[2019-04-21] MEDS: carvediloL 6.25 MG TABLET PO SCH ×2 (07:42→17:16)
[2019-04-21] MEDS: Albumin 25% 25gram/100mL 25 GM/100 ML IV.SOLN IVPB SCH ×2 (07:42→17:16)
[2019-04-21] MEDS: levoFLOXacin 750 MG TABLET PO SCH (07:42)
[2019-04-21] MEDS: Levothyroxine 25 MCG TABLET PO SCH (07:42)
[2019-04-21] MEDS: Furosemide 40 MG/4 ML VIAL IVP SCH (09:48)
[2019-04-21] MEDS ORDERED: Dextrose Gel 15 GM/37.5 ML TUBE PO PRN ×2 (16:51)
[2019-04-21] MEDS ORDERED: *HR* Dextrose 50 % in Water (Syg) 50 ML SYRINGE IVP PRN (16:51)
[2019-04-21] MEDS ORDERED: D5% in Water 1,000 ML IVC PRN (16:51)
[2019-04-22 05:14] LABS: Basophils # 0.1 K/mcL (0.0-0.2); Basophils % 0.6 %; Eosinophils # 0.3 K/mcL (0.0-0.6); Eosinophils % 2.4 %; Hematocrit 22.4 % (35.3-44.9); Hemoglobin 7.3 g/dL (11.5-15.4); Immature Granulocytes % 0.5 % (0-4); Lymphocytes # 2.7 K/mcL (0.6-4.6); Lymphocytes % 21.5 %; Mean Corpuscular HGB Conc 32.6 g/dL (31.6-35.5); Mean Corpuscular Volume 88.9 fL (83.0-100.0); Mean Platelet Volume 9.5 fL (9.4-12.4); Monocytes # 0.9 K/mcL (0.0-1.3); Monocytes % 7.1 %; Neutrophils # 8.6 K/mcL (1.6-8.9); Platelet Count 346 K/mcL (140-400); Red Blood Count 2.52 M/mcL (3.82-4.97); Red Cell Distribution Width 13.8 % (11.5-14.5); Segmented Neutrophils % 67.9 %; White Blood Count 12.6 K/mcL (4.3-11.1)
[2019-04-22 05:42] LABS: Calcium 9.2 mg/dL (8.6-10.3); Magnesium 1.8 mg/dL (1.6-2.6); Potassium 3.6 mEq/L (3.5-5.1)
[2019-04-22] MEDS: Linezolid 600 MG TABLET PO SCH ×2 (06:09→17:44)
[2019-04-22] MEDS: carvediloL 6.25 MG TABLET PO SCH ×2 (08:33→17:44)
[2019-04-22] MEDS: Insulin LISPRO 300 UNITS/3 ML VIAL SQ SCH ×3 (08:33→17:44)
[2019-04-22] MEDS: Levothyroxine 25 MCG TABLET PO SCH (08:33)
[2019-04-22] MEDS: metOLazone 5 MG TABLET PO SCH (08:34)
[2019-04-22] MEDS ORDERED: Insulin DETEMIR 100 UNIT/ML X5UNITS SQ SCH (09:00)
[2019-04-22] MEDS: Acetaminophen 325 MG TABLET PO PRN (21:36)
[2019-04-23] MEDS: Linezolid 600 MG TABLET PO SCH ×2 (05:13→17:11)
[2019-04-23 05:40] LABS: Basophils # 0.1 K/mcL (0.0-0.2); Basophils % 0.5 %; Eosinophils # 0.5 K/mcL (0.0-0.6); Hemoglobin 7.5 g/dL (11.5-15.4); Immature Granulocytes % 0.5 % (0-4); Lymphocytes # 3.1 K/mcL (0.6-4.6); Mean Corpuscular HGB Conc 32.6 g/dL (31.6-35.5); Mean Corpuscular Hemoglobin 28.8 pg (28.0-33.3); Mean Corpuscular Volume 88.5 fL (83.0-100.0); Mean Platelet Volume 9.3 fL (9.4-12.4); Monocytes # 0.8 K/mcL (0.0-1.3); Monocytes % 6.4 %; Neutrophils # 8.3 K/mcL (1.6-8.9); Platelet Count 330 K/mcL (140-400); Red Cell Distribution Width 14.2 % (11.5-14.5); Segmented Neutrophils % 64.6 %; White Blood Count 12.8 K/mcL (4.3-11.1)
[2019-04-23 06:08] LABS: Calcium 9.3 mg/dL (8.6-10.3); Magnesium 1.8 mg/dL (1.6-2.6); Potassium 3.4 mEq/L (3.5-5.1)
[2019-04-23] MEDS: Levothyroxine 25 MCG TABLET PO SCH (08:53)
[2019-04-23] MEDS: metOLazone 5 MG TABLET PO SCH (08:53)
[2019-04-23] MEDS: carvediloL 6.25 MG TABLET PO SCH ×2 (08:54→17:11)
[2019-04-23] MEDS: Insulin LISPRO 300 UNITS/3 ML VIAL SQ SCH ×3 (08:55→17:12)
[2019-04-23] MEDS: Insulin DETEMIR 100 UNIT/ML X5UNITS SQ SCH (09:07)
[2019-04-24 02:08] LABS: Basophils # 0.1 K/mcL (0.0-0.2); Basophils % 0.4 %; Eosinophils # 0.5 K/mcL (0.0-0.6); Eosinophils % 3.2 %; Hematocrit 22.8 % (35.3-44.9); Hemoglobin 7.2 g/dL (11.5-15.4); Immature Granulocytes % 0.4 % (0-4); Lymphocytes # 2.9 K/mcL (0.6-4.6); Lymphocytes % 20.5 %; Mean Corpuscular HGB Conc 31.6 g/dL (31.6-35.5); Mean Corpuscular Hemoglobin 28.7 pg (28.0-33.3); Mean Corpuscular Volume 90.8 fL (83.0-100.0); Mean Platelet Volume 9.7 fL (9.4-12.4); Monocytes # 0.9 K/mcL (0.0-1.3); Monocytes % 6.3 %; Neutrophils # 9.7 K/mcL (1.6-8.9); Nucleated Red Blood Cells 0.1 /100 WBC (0); Platelet Count 301 K/mcL (140-400); Red Blood Count 2.51 M/mcL (3.82-4.97); Red Cell Distribution Width 14.2 % (11.5-14.5); Segmented Neutrophils % 69.2 %
[2019-04-24 02:27] LABS: Calcium 9.2 mg/dL (8.6-10.3); Magnesium 1.7 mg/dL (1.6-2.6); Potassium 3.7 mEq/L (3.5-5.1)
[2019-04-24] MEDS: Linezolid 600 MG TABLET PO SCH ×2 (05:27→16:43)
[2019-04-24] MEDS ORDERED: 0.9 % Sodium Chloride 250 ML IVC SCH (08:00)
[2019-04-24] MEDS: Insulin LISPRO 300 UNITS/3 ML VIAL SQ SCH ×3 (09:18→16:44)
[2019-04-24] MEDS: carvediloL 6.25 MG TABLET PO SCH ×2 (09:37→16:43)
[2019-04-24] MEDS: metOLazone 5 MG TABLET PO SCH (09:38)
[2019-04-24] MEDS: Levothyroxine 25 MCG TABLET PO SCH (09:38)
[2019-04-24] MEDS: Insulin DETEMIR 100 UNIT/ML X5UNITS SQ SCH (09:39)
[2019-04-24] MEDS: Cholestyramine 4 GM POWD.PACK PO SCH ×2 (09:53→16:43)
[2019-04-24] MEDS: predniSONE 10 MG TABLET PO SCH (09:53)
[2019-04-24] MEDS ORDERED: Insulin DETEMIR 100 UNIT/ML X5UNITS SQ ONE (13:19)
[2019-04-24] MEDS: Lactobacillus 1 EACH CAP.SPRINK PO SCH (21:13)
[2019-04-25 01:43] LABS: Basophils # 0.1 K/mcL (0.0-0.2); Basophils % 0.6 %; Eosinophils # 0.3 K/mcL (0.0-0.6); Eosinophils % 2.3 %; Hematocrit 25.2 % (35.3-44.9); Hemoglobin 8.2 g/dL (11.5-15.4); Immature Granulocytes % 0.2 % (0-4); Lymphocytes # 2.4 K/mcL (0.6-4.6); Lymphocytes % 19.4 %; Mean Corpuscular HGB Conc 32.5 g/dL (31.6-35.5); Mean Platelet Volume 9.4 fL (9.4-12.4); Monocytes # 0.9 K/mcL (0.0-1.3); Neutrophils # 8.8 K/mcL (1.6-8.9); Nucleated Red Blood Cells 0.2 /100 WBC (0); Platelet Count 258 K/mcL (140-400); Red Blood Count 2.83 M/mcL (3.82-4.97); Red Cell Distribution Width 14.1 % (11.5-14.5); Segmented Neutrophils % 70.5 %; White Blood Count 12.6 K/mcL (4.3-11.1)
[2019-04-25 02:03] LABS: Calcium 9.3 mg/dL (8.6-10.3); Magnesium 1.8 mg/dL (1.6-2.6); Potassium 3.8 mEq/L (3.5-5.1)
[2019-04-25] MEDS: Linezolid 600 MG TABLET PO SCH (06:11)
[2019-04-25] MEDS: Insulin LISPRO 300 UNITS/3 ML VIAL SQ SCH ×2 (08:40→13:23)
[2019-04-25] MEDS: Cholestyramine 4 GM POWD.PACK PO SCH ×2 (08:41→13:23)
[2019-04-25] MEDS: carvediloL 6.25 MG TABLET PO SCH (08:43)
[2019-04-25] MEDS: Insulin DETEMIR 100 UNIT/ML X5UNITS SQ SCH (08:43)
[2019-04-25] MEDS: Levothyroxine 25 MCG TABLET PO SCH (08:43)
[2019-04-25] MEDS: predniSONE 10 MG TABLET PO SCH (08:44)
[2019-04-25] MEDS: metOLazone 5 MG TABLET PO SCH (08:44)
[2019-04-25] MEDS: Lactobacillus 1 EACH CAP.SPRINK PO SCH (08:44)
[2019-04-25 16:01] VITALS: BP 155/78
== END 2019-04-25 18:07 | DRG 698 ==
LOC: EMEROOARM 13:26 → 3BNU 13:26 → SUATTDRO 16:47 → 3BNU 17:35 → SUATTDRO 04-15 15:52
PROVIDERS: ADMIT Student in an Organized Health Care Education/Training Program; ATTEND Pharmacist